=== PATIENT | female | born 1990 | race Caucasian/White ===

== ENCOUNTER → 2017-03-13 | Outpatient (CLI) | payer MEDICARE, MEDICAID ==
[~2017-03-13] MED LIST: /CELE20CA; /CELE20CA OR; /CELE20CA PO; /DULO30CA OR; /DULO30CA PO; ACET500C; ALBU83IN IN; ALLE25CA; AMBI10TA PO; AMIT25TA2 OR; AUGM875T27 PO; B1 PO; B12-1CHW PO; CALC500T19 PO; CHAN0.5P6 PO; CYMB1CAP5 PO; FLEX10TA2 PO; FLOV110A IN; GABA-279 PO; GLUC500T; GLUC500T OR; LEVO75TA3 PO; LIDO1OIN2 TOP; LYRI200C; LYRI200C PO; METF500T4 OR; METH-107 PO; MISO200T3 PO; MORP15TA2 PO; MORPHINE OR; MS C15TA5; MULTCAP PO; NAPRELAN PO; NEUR100C; NEUR300C; NEUR400C OR; PENN1SOL2 TD; PERC5TAB6 PO; PERC5TAB8; PERC5TAB8 OR; PERC5TAB8 PO; PERCOCET PO; PRIL40CA PO; PROT20TA11 PO; SENN15TA2 OR; SOMA350T; SUCR1TA PO; TIZA4CAP3 PO; TIZA4TAB OR; TRAM50TA2; TRAM50TA2 OR; TRAM50TA2 PO; TRAZ50TA OR; TYLE167L PO; VARE05TA OR; VICO5TAB; VITA500T53 PO; WELL100T PO; calcium PO; colace OR; flexeril PO; vitaminB12 PO
[2017-03-13 14:38] LABS: ALBUMIN 3.5 GM/DL (3.2-5.2); ALBUMIN/GLOBULIN RATIO 1.03 (1.00-1.93); ALKALINE PHOSPHATASE 95 U/L (45-117); ALT/SGPT 12 U/L (12-78); ANION GAP 10 MEQ/L (8-16); AST/SGOT 6 U/L (15-37); BILIRUBIN,TOTAL 0.3 MG/DL (0.2-1.0); BLOOD UREA NITROGEN 8 MG/DL (7-18); CALCIUM LEVEL 8.7 MG/DL (8.5-10.1); CARBON DIOXIDE LEVEL 27 MEQ/L (21-32); CHLORIDE LEVEL 106 MEQ/L (98-107); CREATININE FOR GFR 0.63 MG/DL (0.55-1.02); GLOMERULAR FILTRATION RATE > 60.0 (>60); GLUCOSE, FASTING 73 MG/DL (70-105); POTASSIUM SERUM 4.8 MEQ/L (3.5-5.1); SODIUM LEVEL 143 MEQ/L (136-145); TOTAL PROTEIN 6.9 GM/DL (6.4-8.2)
[2017-03-13 14:46] LABS: BASO % 0.5 % (0.0-1.0); EOS # 0.2 K/mm3 (0.0-0.50); MEAN CORPUSCULAR HEMOGLOBIN 33.2 pg (27.0-33.0); MEAN CORPUSCULAR HGB CONC 33.6 g/dl (32.0-36.5); MEAN CORPUSCULAR VOLUME 98.7 fl (80.0-96.0); MONO # 0.3 K/mm3 (0.0-0.8); MONO % 3.9 % (0.0-5.0); NEUTROPHILS # 5.9 K/mm3 (1.8-7.7); NEUTROPHILS % 68.2 % (36.0-66.0); RED CELL DISTRIBUTION WIDTH 13.1 % (11.5-14.5); WHITE BLOOD COUNT 8.6 K/mm3 (4.0-10.0)
[2017-03-14 12:56] LABS: ALBUMIN % 55.3 % (55.8-66.1)
[2017-03-14 12:57] LABS: ALBUMIN 3.82 GM/DL (3.29-5.55); GAMMA GLOBULIN % 10.8 % (11.1-18.8)
== END ==
LOC: M LAB 12:50
PROVIDERS: ATTEND Physician Assistant Medical
DX: M79.7 Fibromyalgia (principal); M54.5 Low back pain

== ENCOUNTER 2017-03-14 13:47 | Emergency (ER) | payer MEDICARE, MEDICAID ==
[~2017-03-14] VITALS: Ht 170.2 cm; Wt 90.7 kg
[~2017-03-14 13:47] MED LIST changes: -LYRI200C; -LYRI200C PO
[2017-03-14] MEDS ORDERED: LYRI200C (13:56)
[2017-03-14] MEDS ORDERED: MORPHINE 4 MG/ML 1ML SYRINGE IM ONE ×2 (14:15→14:30)
[2017-03-14] MEDS ORDERED: LYRI200C PO (14:19)
[2017-03-14 15:07] VITALS: BP 131/72
== END 2017-03-14 15:10 | disposition home or self-care (01) ==
LOC: M ED 14:30
DX: Z76.0 Encounter for issue of repeat prescription (principal); G89.29 Other chronic pain; M54.5 Low back pain; Z98.84 Bariatric surgery status; Z79.899 Other long term (current) drug therapy; Z88.2 Allergy status to sulfonamides; Z88.5 Allergy status to narcotic agent; Z88.8 Allergy status to other drugs, medicaments and biological substances; F17.210 Nicotine dependence, cigarettes, uncomplicated

== ENCOUNTER → 2017-04-04 | Outpatient (REF) | payer MEDICARE, MEDICAID ==
[~2017-04-04] MED LIST changes: +LYRI200C; +LYRI200C PO
== END ==
LOC: M LAB REF 16:38
PROVIDERS: ATTEND Physician Assistant Medical
DX: N39.0 Urinary tract infection, site not specified (principal)

== ENCOUNTER → 2017-05-10 | Outpatient (CLI) | payer MEDICARE, MEDICAID ==
[~2017-05-10] MED LIST changes: -METH-107 PO; +METH1TAB40 PO; -MISO200T3 PO; +MISO200T56 PO; +PERC5TAB12 PO; -PERC5TAB6 PO
--- NOTE | 2017-05-14 09:47 | REP ---
MR LUMBAR SPINE WITHOUT CONTRAST: HISTORY: Back pain. COMPARISON: 07/27/2015 Decreased signal intensity on T2-weighted images is present in the L3-4 through L5-S1 intervertebral discs. The discs are decreased in height. These findings are consistent with disc degeneration. A small right paracentral disc protrusion is present at the T11-12 level. There is minimal effacement of the thecal sac without spinal cord compression. The T11 neural foramina are patent on sagittal images. There is no disc bulge or herniation at the L1-2 and L2-3 levels. The nerves exit the neural foramina without compression. A diffuse disc bulge is present at the L3-4 level. There is minimal compression of the thecal sac. There is hypertrophy of the posterior articulating facets. The L3 nerves exit the neural foramina without compression. A diffuse disc bulge is present at the L4-5 level. There is hypertrophy of the ligamenta flava and posterior articulating facets. These findings produce minimal central canal stenosis. The L4 nerves exit the neural foramina without compression. A diffuse disc bulge and small central disc extrusion are present at the L5-S1 level. There is inferior migration of disc material. There is minimal compression of the thecal sac and S1 nerves as they exit the thecal sac. There is hypertrophy of the posterior articulating facets. The L5 nerves exit the neural foramina without compression. The conus medullaris is normal in appearance terminating at the level of the L1 vertebral body. Increased signal intensity on T2-weighted images is present in the endplates of the L4 and L5 vertebral bodies. This represents degenerative change. IMPRESSION: 1. Diffuse disc bulge at the L3-4 level with minimal thecal sac compression. 2. Minimal central canal stenosis at the L4-5 level secondary to disc bulge, ligamentous and facet hypertrophy. 3. Diffuse disc bulge and small central disc extrusion at the L5-S1 level with minimal compression of the thecal sac and S1 nerves as they exit the thecal sac. There is no significant change compared to the previous study. Signed by Jaspreet Yen MD 05/14/2017 09:51 A
== END ==
LOC: M RAD 09:46
PROVIDERS: ATTEND Physician Assistant
DX: M47.26 Other spondylosis with radiculopathy, lumbar region (principal); M51.36 Other intervertebral disc degeneration, lumbar region

== ENCOUNTER → 2017-05-14 | Outpatient (CLI) | payer MEDICARE, MEDICAID ==
[2017-05-14 17:41] LABS: IMMUNOGLOBULIN E 32.8 IU/ML (<100); IMMUNOGLOBULIN M 52.6 MG/DL (40-230)
== END ==
LOC: M LAB 15:47
PROVIDERS: ATTEND Physician Assistant Medical
DX: R76.9 Abnormal immunological finding in serum, unspecified (principal)

== ENCOUNTER 2018-01-15 20:42 | Emergency (ER) | payer MEDICARE, MEDICAID ==
[2018-01-15] MEDS: CLINDAMYCIN 150 MG CAP PO (22:30)
== END 2018-01-15 22:38 | disposition home or self-care (01) ==
LOC: M ED 20:42
DX: L02.411 Cutaneous abscess of right axilla (principal); F17.200 Nicotine dependence, unspecified, uncomplicated; Z79.899 Other long term (current) drug therapy; Z88.5 Allergy status to narcotic agent; Z88.6 Allergy status to analgesic agent; Z88.2 Allergy status to sulfonamides
CPT/HCPCS: 87186

== ENCOUNTER → 2018-03-06 | Outpatient (CLI) | payer MEDICARE, MEDICAID ==
[2018-03-06 08:17] LABS: HEMATOCRIT 40.8 % (36.0-47.0); HEMOGLOBIN 13.2 g/dl (12.0-15.5); MEAN CORPUSCULAR HEMOGLOBIN 28.9 pg (27.0-33.0); MEAN CORPUSCULAR HGB CONC 32.4 g/dl (32.0-36.5); MEAN CORPUSCULAR VOLUME 89.5 fl (80.0-96.0); PLATELET COUNT, AUTOMATED 417 10^3/uL (150-450); RED BLOOD COUNT 4.56 10^6/uL (4.00-5.40); RED CELL DISTRIBUTION WIDTH 15.6 % (11.5-14.5); WHITE BLOOD COUNT 9.7 10^3/uL (4.0-10.0)
[2018-03-06 08:56] LABS: ALBUMIN 3.4 GM/DL (3.2-5.2); ALKALINE PHOSPHATASE 74 U/L (45-117); ALT/SGPT 11 U/L (12-78); ANION GAP 5 MEQ/L (8-16); AST/SGOT 10 U/L (7-37); BILIRUBIN,TOTAL 0.3 MG/DL (0.2-1.0); BLOOD UREA NITROGEN 8 MG/DL (7-18); CALCIUM LEVEL 8.6 MG/DL (8.5-10.1); CARBON DIOXIDE LEVEL 27 MEQ/L (21-32); CHLORIDE LEVEL 112 MEQ/L (98-107); CHOLESTEROL LEVEL 143 MG/DL (<200); CHOLESTEROL RISK RATIO 3.487 (<5); CREATININE FOR GFR 0.84 MG/DL (0.55-1.30); GLOMERULAR FILTRATION RATE > 60.0 (>60); GLUCOSE, FASTING 82 MG/DL (70-100); HDL CHOLESTEROL 41 MG/DL (>40); IRON (FE) 26 UG/DL (50-170); LDL CHOLESTEROL 73.8 MG/DL (<100); NON-HDL-C 102 MG/DL; PERCENT SATURATION 6.1 % (13.2-45.0); POTASSIUM SERUM 4.2 MEQ/L (3.5-5.1); SODIUM LEVEL 144 MEQ/L (136-145); THYROID STIMULATING HORMONE 0.629 uIU/ML (0.358-3.740); TOTAL IRON BINDING CAPACITY 423 UG/DL (250-450); TOTAL PROTEIN 6.8 GM/DL (6.4-8.2); TRIGLYCERIDES LEVEL 141 MG/DL (<150)
[2018-03-06 09:55] LABS: ESTIMATED AVERAGE GLUCOSE 105 MG/DL (60-110); HEMOGLOBIN A1c 5.3 %
[2018-03-06 12:11] LABS: TOTAL 25(OH) VITAMIN D 14.8 NG/ML (30.0-100.0); VITAMIN B12 LEVEL 294 PG/ML (247-911)
== END ==
LOC: M LAB 06:23
DX: D64.9 Anemia, unspecified (principal); R53.83 Other fatigue; E03.9 Hypothyroidism, unspecified
CPT/HCPCS: 83550

== ENCOUNTER → 2019-06-29 | Outpatient (CLI) | payer MEDICARE, MEDICAID ==
[~2019-06-29] MED LIST changes: -/CELE20CA; -/CELE20CA OR; -/CELE20CA PO; -/DULO30CA OR; -/DULO30CA PO; +AMIT50TA PO; +CELE1CAP4; +CELE1CAP4 OR; +CELE1CAP4 PO; +CLEO300C2 PO; +CONRAY-43 43% 50ML VIAL (Q9960) As Ordered ONE; +CYCL10TA PO; +CYMB1CAP5 OR; +CYMB60CA3 PO; +GABA-1171 PO; -GABA-279 PO; +LIDOCAINE 1% MDV 20ML VIAL As Ordered ONE; -LYRI200C; +NORC1TAB8 PO; +OXYC1TAB23 PO; -PERCOCET PO; +TIZA4CAP PO; -TIZA4CAP3 PO; +TRIAMCINOLONE ACETONIDE SUSP 40 MG/ML VIAL (J3301) As Ordered ONE; +VITA500T17 PO; -VITA500T53 PO
--- NOTE | 2019-06-30 09:26 | REP ---
Reason For Exam/Comment: Pain in right hip Procedure: Right hip arthrocentesis The procedure was performed by PRAFUL Stevenson, under the direct supervision of Dr. Whittington. The benefits and risks including but not limited to pain, infection, bleeding and anaphylaxis were explained to the patient and informed consent was obtained both verbally and written. Directly prior to the start of the procedure, a formal timeout was completed in the procedure room. The right femoral neck was localized using fluoroscopic guidance. The skin was prepped and draped in the usual sterile fashion. 5 mL of 1% lidocaine was used as a local anesthetic. Using fluoroscopic guidance a 22-gauge spinal needle was inserted and advanced to the right femoral neck joint space . 1 mL of Conray 43 was injected to verify needle placement. A 6 mL solution containing a 5 mL 1% lidocaine 10 mg/ml and 1 ml of Kenalog 40 mg/ml was injected into the joint. The needle was removed and hemostasis was achieved. The patient tolerated the procedure well and there were no immediate complications. 0.1 minutes of fluoroscopy time was utilized for this procedure. Some fluoroscopic images are performed with last image hold technology. These images require no additional radiation. Reviewed by PRAFUL Estes 06/29/2019 03:29 P Electronically Signed by Elna Whittington MD 06/30/2019 09:17 A
== END ==
LOC: M RADPRO 09:35
PROVIDERS: ATTEND Physician Assistant
DX: M25.551 Pain in right hip (principal)
CPT/HCPCS: 20610; 77002; J3301; Q9960

== ENCOUNTER 2019-12-03 15:22 | Emergency (ER) | payer MEDICARE, MEDICAID ==
[~2019-12-03] VITALS: Ht 167.6 cm; Wt 95.5 kg
[~2019-12-03 15:22] MED LIST changes: -CONRAY-43 43% 50ML VIAL (Q9960) As Ordered ONE; -LIDOCAINE 1% MDV 20ML VIAL As Ordered ONE; -TRIAMCINOLONE ACETONIDE SUSP 40 MG/ML VIAL (J3301) As Ordered ONE
[2019-12-03] MEDS ORDERED: FLUO20CA19 PO (16:29)
[2019-12-03] MEDS ORDERED: ADACEL/BOOSTRIX VACCINE (DIPHTH/PERTUSS/ACELL/TETANUS)0.5ML SYR (90715) IM ONE (16:45)
[2019-12-03] MEDS ORDERED: LIDOCAINE 2% MDV 20 ML VIAL SC ONE (16:45)
[2019-12-03] MEDS ORDERED: INFANRIX VACCINE SYRINGE (DIPHTH/TET/ACEL PERTUS PEDIATRIC) (CPT 90700) IM ONE (16:45)
[2019-12-03] MEDS ORDERED: NORC1TAB8 PO (17:23)
[2019-12-03 17:29] VITALS: BP 150/73
--- NOTE | 2019-12-03 18:18 | REP ---
LEFT FINGERS: 12/03/2019. Clinical history: Crush injury. Findings: Four views are provided. There is a soft tissue injury along the ulnar aspect of the DIP joint of the fourth digit. I do not see radiopaque foreign body. The MCP and IP joints and phalanges without fracture or avulsion. No radiopaque foreign body. Impression: 1. Soft tissue injury at the ulnar aspect DIP joint of the fourth digit without evidence of fracture or foreign body. Electronically Signed by Laurent Oneil MD 12/03/2019 08:51 P
== END 2019-12-03 17:30 | disposition home or self-care (01) ==
LOC: M ED 15:22
DX: S61.215A Laceration without foreign body of left ring finger without damage to nail, initial encounter (principal); S60.042A Contusion of left ring finger without damage to nail, initial encounter; W20.8XXA Other cause of strike by thrown, projected or falling object, initial encounter; Y92.099 Unspecified place in other non-institutional residence as the place of occurrence of the external cause; Y93.9 Activity, unspecified; Y99.9 Unspecified external cause status; Z98.84 Bariatric surgery status; F17.200 Nicotine dependence, unspecified, uncomplicated; Z79.899 Other long term (current) drug therapy; Z88.2 Allergy status to sulfonamides; Z88.5 Allergy status to narcotic agent; Z88.6 Allergy status to analgesic agent

== ENCOUNTER → 2020-04-07 | Outpatient (CLI) | payer MEDICARE, MEDICAID ==
[~2020-04-07] MED LIST changes: +CYCL-707 PO; -CYCL10TA PO; +FLUO20CA22 PO
--- NOTE | 2020-04-11 03:51 | ECWPNPC ---
PATIENT NAME: MARIA E FARMER : 1990 GENDER: FEMALE VISIT DATE: 04/07/2020 DISCHARGE DATE: 04/07/20 1011 VISIT LOCKED DATE TIME: PHYSICIAN: JAIRON MACDONALD RESOURCE: JAIRON MACDONALD REASON FOR APPOINTMENT 1. CHRONIC AND UNREMITTING BACK PAIN UNABLE TO REACH PT HISTORY OF PRESENT ILLNESS DEPRESSION SCREENING: PHQ-9 LITTLE INTEREST OR PLEASURE IN DOING THINGSNEARLY EVERY DAY FEELING DOWN, DEPRESSED, OR HOPELESSNEARLY EVERY DAY TROUBLE FALLING OR STAYING ASLEEP, OR SLEEPING TOO MUCHNEARLY EVERY DAY FEELING TIRED OR HAVING LITTLE ENERGYNEARLY EVERY DAY POOR APPETITE OR OVEREATING SEVERAL DAYS FEELING BAD ABOUT YOURSELF-OR THAT YOU ARE A FAILURE OR HAVE LET YOURSELF OR YOUR FAMILY DOWN NEARLY EVERY DAY TROUBLE CONCENTRATING ON THINGS, SUCH READING THE NEWSPAPER OR WATCHING TELEVISION SEVERAL DAYS MOVING OR SPEAKING SO SLOWLY THAT OTHER PEOPLE COULD HAVE NOTICED. OR THE OPPOSITE- BEING SO FIDGETY OR RESTLESS THAT YOU HAVE BEEN MOVING AROUND A LOT MORE THAN USUALNOT AT ALL THOUGHTS THAT YOU WOULD BE BETTER OFF , OR OF HURTING YOURSELF IN SOME WAY?NOT AT ALL TOTAL SCORE:17 INTERPRETATIONMODERATELY SEVERE DEPRESSION PHQ-2 (2015 EDITION) LITTLE INTEREST OR PLEASURE IN DOING THINGS?NEARLY EVERY DAY FEELING DOWN, DEPRESSED, OR HOPELESS?NEARLY EVERY DAY TOTAL SCORE6 29-YEAR-OLD FEMALE IN FOR INITIAL PAIN CONSULT. PATIENT STATES THAT HER LOW BACK PAIN HAS BEEN PRESENT SINCE THE AGE OF 14. SHE DENIES ANY KNOWN TRAUMA. SHE RATES HER PAIN CURRENTLY AT A 7 OUT OF 10 AND DESCRIBES IT THROBBING, SORE, CONSTANT, AND STABBING. SHE DOES ADMIT TO HAVING INJECTIONS IN THE PAST AND STATES THAT THEY WERE INEFFECTIVE. GENERAL: - - -. FALL RISK SCREENING: SCREENING :NO FALLS REPORTED IN THE LAST YEAR PAIN SCREENING: PATIENT HAS A COMPLAINT OF ACUTE OR CHRONIC PAIN :YES LOCATION OF PAIN:LOW BACK, LEG(S) INTENSITY OF PAIN (SCALE OF 1 TO 10):7 WHAT DOES YOUR PAIN FEEL LIKE:ACHING, BURNING, CONTINOUS, SHARP, TENDER, THROBBING, SORE, SHOOTING DURATION:CONSTANT, AWAKENS FROM SLEEP PAIN IS INCREASED BY:ACTIVITIES, PROLONGED STANDING PAIN IS DECREASED BY:OTHERS STRETCHING TREATMENT/MEDICATIONS USED TO MANAGE PAIN:OPIOIDS VICODIN PAIN HAS INTERFERED WITH THE FOLLOWING:BATHING/DRESSING, MOOD, WALKING ABILITY, EMPLOYMENT, HOUSEWORK, SLEEP, RELATIONSHIP WITH OTHERS, ENJOYMENT OF LIFE, TRANSPORTATION, TOILETING PLAN/GOALS/TREATMENT/INTERVENTION/FOLLOW UP:SEE PLAN NURSING NOTE: - - -. PAIN CENTER INTAKE QUESTIONS: NOTES: DISCUSSED DEPRESSION SCORE WITH PT TO ENSURE SAFETY, PT STATES THAT SHE IS NOT A DANGER TO HERSELF OR ANYONE ELSE. UPDATED PROVIDER.. DO YOU HAVE A HISTORY OF MRSA? :NO DO YOU TAKE A BLOOD THINNERS? :NO DO YOU HAVE ANY BLEEDING DISORDERS? :NO ANY NEW NUMBNESS OR WEAKNESS IN YOUR LEGS OR ARMS? :NO ANY PACEMAKER,DEFIBRILLATOR, OR DORSAL COLUMN STIMULATOR? :NO DO YOU HAVE ANY RASHES OR OPEN SORES? :NO ARE YOU ALLERGIC TO IV DYE? :NO ARE YOU DIABETIC? :NO ANY NEW PROBLEMS WITH YOUR MEDICATIONS? :NO HAVE YOU RECEIVED A VACCINE IN THE PAST 30 DAYS? :NO DO YOU PLAN TO RECEIVE A VACCINE IN THE NEXT 21 DAYS? :NO DO YOU NEED ANY PRESCRIPTION? :YES PT STATES THAT SHE WAS GETTING AMITRITYLINE THROUGH PCP. WILL NOT PRESCRIBE ANY LONGER DO YOU TAKE ANY IMMUNOSUPPRESSIVE MEDICATIONS? :NO CURRENT MEDICATIONS TAKING ALBUTEROL SULFATE HFA 108 (90 BASE) MCG/ACT AEROSOL SOLUTION 2 PUFFS INHALATION EVERY 4-6 HOURS NEEDED TAKING MULTIVITAMINS CAPSULE 1CAP ORALLY DAILY TAKING VITAMIN B12 500 MCG TABLET 1 TABLET ORALLY ONCE A DAY TAKING CALCIUM 500 MG TABLET 1 TABLET WITH MEALS ORALLY TWICE A DAY TAKING CARAFATE 1 GM TABLET 1 TABLET ON AN EMPTY STOMACH ORALLY TWICE A DAY TAKING LYRICA 100 MG CAPSULE 1 CAPSULE ORALLY BID NOT-TAKING PERCOCET 5-325 MG TABLET 1 TABLET NEEDED ORALLY EVERY 6 HRS NOT-TAKING PRILOSEC ? MG CAPSULE DELAYED RELEASE 1 CAPSULE ORALLY BID NOT-TAKING PHENAZO 200 MG TABLET 1 TABLET AFTER MEALS ORALLY THREE TIMES A DAY NOT-TAKING LEVOTHYROXINE SODIUM 75 MCG TABLET 1 TABLET ON AN EMPTY STOMACH IN THE MORNING ORALLY ONCE A DAY NOT-TAKING TAMSULOSIN HCL 0.4 MG CAPSULE 1 CAPSULE 30 MINUTES AFTER THE SAME MEAL EACH DAY ORALLY ONCE A DAY NOT-TAKING BACTRIM DS 800-160 MG TABLET 1 TABLET ORALLY TWICE A DAY MEDICATION LIST REVIEWED AND RECONCILED WITH THE PATIENT PAST MEDICAL HISTORY CHRONIC LOW BACK PAIN-LUMBAR INTERVERTBRAL DISC PROTRUSION/EXTRUSION.LEFT SIDED RADICULOPATHY- PAIN CLINIC SPONDYLOLISTHESIS L5-S1 PCOS OBESITY KIDNEY STONES ALLERGIES SULFA: RASH - ALLERGY CAT: ITCHY EYES,SNEEZING - ALLERGY KEFLEX: RASH - ALLERGY CODEINE SULFATE: RASH - ALLERGY SURGICAL HISTORY GASTRIC BYPASS 11/2013 FAMILY HISTORY FATHER: ALIVE, HTN, HEART ATTACK, DM TYPE2 MOTHER: ALIVE, DM TYPE 2 SIBLINGS: ALIVE MATERNAL GRAND MOTHER: HEART ATTACK MATERNAL AUNT: MESOTHELIOMA 3 BROTHER(S) - HEALTHY. FAMILY HX OF KIDNEY STONES AND FREQUENT UTI'S. SOCIAL HISTORY GENERAL: TOBACCO USE ARE YOU A:CURRENT SMOKER ARE YOU INTERESTED IN QUITTING?READY TO QUIT HOW MANY CIGARETTES A DAY DO YOU SMOKE?6-10 HOW SOON AFTER YOU WAKE UP DO YOU SMOKE YOUR FIRST CIGARETTE?6-30 MIN HOW OFTEN DO YOU SMOKE CIGARETTES?EVERY DAY PATIENT COUNSELED ON THE DANGERS OF TOBACCO USE AND URGED TO QUIT:04/07/2020 LATEX QUESTIONNAIRE LATEX ALLERGY : HAVE YOU EVER DEVELOPED ANY TYPE OF REACTION AFTER HANDLING LATEX PRODUCTS SUCH RUBBER GLOVES, CONDOMS, DIAPHRAGMS, BALLOONS, SOCKS, OR UNDERWEAR?NO LATEX ALLERGY : HAVE YOU EVER DEVELOPED ANY TYPE OF REACTION DURING OR AFTER DENTAL APPOINTMENT, VAGINAL/RECTAL EXAMINATION, SURGICAL PROCEDURE, OR ANY OTHER EXPOSURE?NO LATEX RISK : HAVE YOU EVER HAD ANY DIFFICULTY BREATHING OR HIVES AFTER EATING OR HANDLING ANY FRUITS, OR VEGETABLES; SUCH KIWI, BANANAS, STONE FRUITS, OR CHESTNUTSNO LATEX RISK : DO YOU HAVE A PREVIOUS PERSONAL HISTORY OF MORE THAN NINE SURGERIES, SPINA BIFIDA, OR REPEATED CATHERIZATIONS? NO LATEX RISK : ARE YOU FREQUENTLY EXPOSED TO LATEX PRODUCTS IN YOUR OCCUPATION?NO DATE ASKED : 04/07/2020 ALCOHOL SCREENING DID YOU HAVE A DRINK CONTAINING ALCOHOL IN THE PAST YEAR?NO POINTS0 INTERPRETATIONNEGATIVE RECREATIONAL DRUG USE DENIES. CAFFEINE NONE. SEXUAL HX HAD SEX IN THE LAST 12 MONTHS (VAGINAL, ORAL, OR ANAL)?YES WITHMEN ONLY PREVENTION STRATEGIES DISCUSSED:CONDOMS USE PROTECTION?YES HOW OFTEN?ALL OF THE TIME HAVE YOU EVER HAD AN STD?NO NONDENOMINATIONAL NO PENTECOSTAL BELIEFS THAT WOULD IMPACT HEALTH CARE. LANGUAGE [place]. DOMESTIC VIOLENCE NONE. OCCUPATION: [employer] FOR BACK PAIN. DIET: REGULAR DIET. EXERCISE: WALKS. MARITAL STATUS: SINGLE. OTHERS AT HOME: BF AND MOM. PAIN CLINIC PFS, CLERGY, PUBLIC HEALTH REFERRALS WAS THE PROVIDER NOTIFIED OF ANY PERTINENT INFO?YES HAS THE PATIENT BEEN EDUCATED REGARDING HIS/HER PLAN OF CARE?YES ORIENTED TO PAIN MANAGEMENT HAS THE PATIENT BEEN EDUCATED REGARDING PAIN, THE RISK FOR PAIN, THE IMPORTANCE OF EFFECTIVE PAIN MANAGEMENT, AND THE PAIN ASSESSMENT PROCESS?YES HOUSING: RENTS APARTMENT. ADVANCE DIRECTIVE ADVANCE DIRECTIVE DISCUSSED WITH PATIENT:YES PT STATES THAT SHE DOES NOT HAVE A HCP, DECLINES ASSISTANCE OR INFORMATION AT THIS TIME HOSPITALIZATION/MAJOR DIAGNOSTIC PROCEDURE NO HOSPITALIZATION HISTORY. REVIEW OF SYSTEMS CONSTITUTIONAL: ANY RECENT FEVER OR ILLNESS NO . ANY CHANGE IN YOUR MEDICAL CONDITION? NO . CHILLS NO . MUSCULOSKELETAL: ANY NEW PATTERNS OF PAIN OR NUMBNESS? NO . SYSTEMIC LUPUS NO . LYME DISEASE NO . GASTROENTEROLOGY: ANY NEW CHANGE IN BOWEL CONTROL? NO . BARRETTS ESOPHAGUS NO . CIRRHOSIS NO . HEPATITIS NO . LIVER FAILURE NO . NO ABDOMINAL PAIN. ACID REFLUX NO . NO ANOREXIA. NO CONSTIPATION. NO CRAMPING. NO NAUSEA. NO RECTAL BLEEDING. NO VOMITING. UNEXPLAINED WEIGHT LOSS NO . GENITOURINARY: ANY NEW CHANGE IN BLADDER CONTROL? NO . IS THERE A CHANCE YOU COULD BE ? NO . NEUROLOGY: HEAD INJURY NO . NEW ONSET DIZZINESS NO . HEADACHE A LITTLE . STROKES NO . VERTIGO NO . CARDIOLOGY: ANGINA NO . HEART ATTACK NO . HEART SURGERY NO . CONGESTIVE HEART FAILURE/FLUID OVERLOAD NO . CHEST PAIN NO . HIGH BLOOD PRESSURE NO . IRREGULAR HEART BEAT NO . RESPIRATORY: SLEEP APNEA NO . ASTHMA NO . SHORTNESS OF BREATH ON EXERTION NO . COUGH NO . WHEEZING NO . ENDOCRINOLOGY: ADRENAL GLAND DISORDER NO . THYROID DISORDER NO . VITAL SIGNS WT 221.2 LBS, HT 67 IN, BMI 34.64 INDEX, BP 127/83 MM HG, HR 90 /MIN, RR 18 /MIN, TEMP 98.3 F, OXYGEN SAT % 98%, NA INITIALS TL 0920. EXAMINATION GENERAL EXAMINATION: GENERALNO ACUTE DISTRESS, WELL NOURISHED AND HYDRATED. PSYCHAPPROPRIATE MOOD AND AFFECT . LUNGS:CLEAR TO AUSCULTATION BILATERALLY, NO WHEEZES, RHONCHI, RALES. HEART:NO MURMURS, REGULAR RATE AND RHYTHM. BACK:POINT TENDER ALONG LUMBAR SPINE, SURROUNDING SKIN SHOWS NO ERYTHEMA, ECCHYMOSIS, INCREASED WARMTH, AND/OR SKIN ERUPTIONS NOTED. POSITIVE MODIFIED SLR ON THE RIGHT SIDE. . MUSCULOSKELETAL:EQUAL STRENGTH OF THE LOWER EXTREMITIES BILATERALLY . ASSESSMENTS RADICULOPATHY, LUMBOSACRAL REGION - M54.17 (PRIMARY) TREATMENT RADICULOPATHY, LUMBOSACRAL REGION START CYMBALTA CAPSULE DELAYED RELEASE PARTICLES, 30 MG, 1 CAPSULE, ORALLY, ONCE A DAY, 30 DAY(S), 30 CLINICAL NOTES: 29-YEAR-OLD FEMALE IN FOR INITIAL PAIN CONSULT. GIVEN PRESENTING SYMPTOMS AND RESULTS OF PHYSICAL EXAMINATION RECOMMENDED CYMBALTA 30 MG DAILY WITH FOLLOW-UP IN ONE MONTH TO DETERMINE EFFICACY OF TREATMENT. DISCUSSED PROCEDURES WITH PATIENT AND SHE DECLINES THEM AT THIS TIME. PATIENT HAS EXPRESSED UNDERSTANDING OF AND WAS IN AGREEMENT WITH TREATMENT PLAN. GIVEN TIME TO ASK QUESTIONS AND EXPRESS CONCERNS. REFERRAL TO:[facility] TRACKER [facility] REASON:PHQ9 SCORE OF 17 OTHERS NOTES: DULOXETINE MATERIAL WAS PRINTED. PROCEDURE CODES FA211 ESTABILISHED PATIENT [facility] CHARGE DISPOSITION & COMMUNICATION FOLLOW UP 4 WEEKS (REASON: BACK PAIN, NEW MEDICATION) ELECTRONICALLY SIGNED BY ISAMAR MARRUFO ON 04/10/2020 AT 08:26 AM EDT DISCLAIMER : THIS IS A VISIT SUMMARY EXTRACTED FROM THE [employer] CHART. IT IS NOT A COPY OF THE [employer] PROGRESS NOTE. ROCKY
== END ==
LOC: M PAIN 09:15
PROVIDERS: ATTEND Family Medicine
DX: M54.17 Radiculopathy, lumbosacral region (principal)

== ENCOUNTER → 2020-05-05 | Outpatient (CLI) | payer MEDICARE, MEDICAID ==
--- NOTE | 2020-05-09 04:22 | ECWPNPC ---
PATIENT NAME: MARIA E FARMER : 1990 GENDER: FEMALE VISIT DATE: 05/05/2020 DISCHARGE DATE: 05/05/20 1127 VISIT LOCKED DATE TIME: PHYSICIAN: JAIRON MACDONALD RESOURCE: JAIRON MACDONALD REASON FOR APPOINTMENT 1. BACK PAIN, NEW MEDICATION PAT DONE HISTORY OF PRESENT ILLNESS GENERAL: - 30-YEAR-OLD FEMALE IN FOR CHRONIC PAIN FOLLOW-UP. AT LAST CLINIC VISIT PATIENT WAS STARTED ON CYMBALTA AND ADMITS TODAY THAT SHE IS UNSURE IF THIS HAS BEEN HELPFUL. SHE RATES HER PAIN CURRENTLY AT AN 8 OUT OF 10 AND DESCRIBES IT ACHING, SHARP, AND CONSTANT. FALL RISK SCREENING: SCREENING :NO FALLS REPORTED IN THE LAST YEAR PAIN SCREENING: PATIENT HAS A COMPLAINT OF ACUTE OR CHRONIC PAIN :YES LOCATION OF PAIN:LOW BACK INTENSITY OF PAIN (SCALE OF 1 TO 10):8 WHAT DOES YOUR PAIN FEEL LIKE:ACHING, THROBBING, SHOOTING DURATION:CONTINOUS, CONSTANT, ALL DAY PAIN IS INCREASED BY:ACTIVITIES, PROLONGED STANDING WALKING PAIN IS DECREASED BY: NOTHING PAIN HAS INTERFERED WITH THE FOLLOWING:MOOD, HOUSEWORK, RELATIONSHIP WITH OTHERS, ENJOYMENT OF LIFE PLAN/GOALS/TREATMENT/INTERVENTION/FOLLOW UP:SEE PLAN NURSING NOTE: CYMBALTA IS NOT WORKING PER PATIENT-. PAIN CENTER INTAKE QUESTIONS: DO YOU HAVE A HISTORY OF MRSA? :NO DO YOU TAKE A BLOOD THINNERS? :NO DO YOU HAVE ANY BLEEDING DISORDERS? :NO ANY NEW NUMBNESS OR WEAKNESS IN YOUR LEGS OR ARMS? :NO ANY PACEMAKER,DEFIBRILLATOR, OR DORSAL COLUMN STIMULATOR? :NO DO YOU HAVE ANY RASHES OR OPEN SORES? :NO ARE YOU ALLERGIC TO IV DYE? :NO ARE YOU DIABETIC? :NO ANY NEW PROBLEMS WITH YOUR MEDICATIONS? :NO HAVE YOU RECEIVED A VACCINE IN THE PAST 30 DAYS? :NO DO YOU PLAN TO RECEIVE A VACCINE IN THE NEXT 21 DAYS? :NO DO YOU NEED ANY PRESCRIPTION? :YES CYMBALTA DO YOU TAKE ANY IMMUNOSUPPRESSIVE MEDICATIONS? :NO IS THERE A CHANCE YOU COULD BE ? :NO ARE YOU BREAST FEEDING? :NO CURRENT MEDICATIONS TAKING ALBUTEROL SULFATE HFA 108 (90 BASE) MCG/ACT AEROSOL SOLUTION 2 PUFFS INHALATION EVERY 4-6 HOURS NEEDED TAKING MULTIVITAMINS CAPSULE 1CAP ORALLY DAILY TAKING VITAMIN B12 500 MCG TABLET 1 TABLET ORALLY ONCE A DAY TAKING CALCIUM 500 MG TABLET 1 TABLET WITH MEALS ORALLY TWICE A DAY TAKING CARAFATE 1 GM TABLET 1 TABLET ON AN EMPTY STOMACH ORALLY TWICE A DAY TAKING LYRICA 100 MG CAPSULE 1 CAPSULE ORALLY BID TAKING CYMBALTA 30 MG CAPSULE DELAYED RELEASE PARTICLES 1 CAPSULE ORALLY ONCE A DAY NOT-TAKING PERCOCET 5-325 MG TABLET 1 TABLET NEEDED ORALLY EVERY 6 HRS NOT-TAKING PRILOSEC ? MG CAPSULE DELAYED RELEASE 1 CAPSULE ORALLY BID NOT-TAKING PHENAZO 200 MG TABLET 1 TABLET AFTER MEALS ORALLY THREE TIMES A DAY NOT-TAKING LEVOTHYROXINE SODIUM 75 MCG TABLET 1 TABLET ON AN EMPTY STOMACH IN THE MORNING ORALLY ONCE A DAY NOT-TAKING TAMSULOSIN HCL 0.4 MG CAPSULE 1 CAPSULE 30 MINUTES AFTER THE SAME MEAL EACH DAY ORALLY ONCE A DAY NOT-TAKING BACTRIM DS 800-160 MG TABLET 1 TABLET ORALLY TWICE A DAY MEDICATION LIST REVIEWED AND RECONCILED WITH THE PATIENT PAST MEDICAL HISTORY CHRONIC LOW BACK PAIN-LUMBAR INTERVERTBRAL DISC PROTRUSION/EXTRUSION.LEFT SIDED RADICULOPATHY- PAIN CLINIC SPONDYLOLISTHESIS L5-S1 PCOS OBESITY KIDNEY STONES ALLERGIES SULFA: RASH - ALLERGY CAT: ITCHY EYES,SNEEZING - ALLERGY KEFLEX: RASH - ALLERGY CODEINE SULFATE: RASH - ALLERGY SURGICAL HISTORY GASTRIC BYPASS 11/2013 FAMILY HISTORY FATHER: ALIVE, HTN, HEART ATTACK, DM TYPE2 MOTHER: ALIVE, DM TYPE 2 SIBLINGS: ALIVE MATERNAL GRAND MOTHER: HEART ATTACK MATERNAL AUNT: MESOTHELIOMA 3 BROTHER(S) - HEALTHY. FAMILY HX OF KIDNEY STONES AND FREQUENT UTI'S. SOCIAL HISTORY GENERAL: TOBACCO USE ARE YOU A:CURRENT SMOKER ARE YOU INTERESTED IN QUITTING?READY TO QUIT COUNSELED THE PATIENT ON TOBACCO USE, CESSATION [id number]/26/2020 HOW MANY CIGARETTES A DAY DO YOU SMOKE?6-10 HOW SOON AFTER YOU WAKE UP DO YOU SMOKE YOUR FIRST CIGARETTE?6-30 MIN HOW OFTEN DO YOU SMOKE CIGARETTES?EVERY DAY PATIENT COUNSELED ON THE DANGERS OF TOBACCO USE AND URGED TO QUIT:05/05/2020 SMOKING CESSATION INFORMATION GIVEN05/05/2020 LATEX QUESTIONNAIRE LATEX ALLERGY : HAVE YOU EVER DEVELOPED ANY TYPE OF REACTION AFTER HANDLING LATEX PRODUCTS SUCH RUBBER GLOVES, CONDOMS, DIAPHRAGMS, BALLOONS, SOCKS, OR UNDERWEAR?NO LATEX ALLERGY : HAVE YOU EVER DEVELOPED ANY TYPE OF REACTION DURING OR AFTER DENTAL APPOINTMENT, VAGINAL/RECTAL EXAMINATION, SURGICAL PROCEDURE, OR ANY OTHER EXPOSURE?NO LATEX RISK : HAVE YOU EVER HAD ANY DIFFICULTY BREATHING OR HIVES AFTER EATING OR HANDLING ANY FRUITS, OR VEGETABLES; SUCH KIWI, BANANAS, STONE FRUITS, OR CHESTNUTSNO LATEX RISK : DO YOU HAVE A PREVIOUS PERSONAL HISTORY OF MORE THAN NINE SURGERIES, SPINA BIFIDA, OR REPEATED CATHERIZATIONS? NO LATEX RISK : ARE YOU FREQUENTLY EXPOSED TO LATEX PRODUCTS IN YOUR OCCUPATION?NO DATE ASKED : 05/05/2020 ALCOHOL SCREENING POINTS: 0, INTERPRETATION: NEGATIVE. RECREATIONAL DRUG USE DENIES. CAFFEINE NONE. SEXUAL HX HAD SEX IN THE LAST 12 MONTHS (VAGINAL, ORAL, OR ANAL)?: YES, WITH: MEN ONLY, USE PROTECTION?: YES, HOW OFTEN?: ALL OF THE TIME, PREVENTION STRATEGIES DISCUSSED:: CONDOMS, HAVE YOU EVER HAD AN STD?: NO. MANDAEN NO CAODAISM BELIEFS THAT WOULD IMPACT HEALTH CARE. LANGUAGE DIVEHI. DOMESTIC VIOLENCE NONE. OCCUPATION: [employer] FOR BACK PAIN. DIET: REGULAR DIET. EXERCISE: WALKS. MARITAL STATUS: SINGLE. OTHERS AT HOME: BF AND MOM. PAIN CLINIC PFS, CLERGY, PUBLIC HEALTH REFERRALS WAS THE PROVIDER NOTIFIED OF ANY PERTINENT INFO?YES HAS THE PATIENT BEEN EDUCATED REGARDING HIS/HER PLAN OF CARE?YES ORIENTED TO PAIN MANAGEMENT HAS THE PATIENT BEEN EDUCATED REGARDING PAIN, THE RISK FOR PAIN, THE IMPORTANCE OF EFFECTIVE PAIN MANAGEMENT, AND THE PAIN ASSESSMENT PROCESS?YES HOUSING: RENTS APARTMENT. ADVANCE DIRECTIVE ADVANCE DIRECTIVE DISCUSSED WITH PATIENT:YES PT STATES THAT SHE DOES NOT HAVE A HCP, DECLINES ASSISTANCE OR INFORMATION AT THIS TIME HOSPITALIZATION/MAJOR DIAGNOSTIC PROCEDURE NO HOSPITALIZATION HISTORY. REVIEW OF SYSTEMS CONSTITUTIONAL: ANY RECENT FEVER NO . CHILLS NO . WEIGHT CHANGE OF UNKNOWN REASONS NO . GASTROENTEROLOGY: NEW UNEXPLAINABLE CHANGES IN BOWEL CONTROL NO . CONSTIPATION NO . GENITOURINARY: ANY NEW CHANGE IN BLADDER CONTROL? NO . NEUROLOGY: NEW ONSET DIZZINESS OR NEUROLOGICAL CHANGES NOT MENTIONED NO . NEW NUMBNESS OR PAIN PATTERNS NOT MENTIONED AND PERTINENT TO TODAY'S VISIT NO . CARDIOLOGY: NEW CHEST PRESSURE NO . NEW CHEST PAIN NO . RESPIRATORY: UNEXPLAINABLE COUGH NO . NEW SHORTNESS OF BREATH NO . EXAMINATION GENERAL EXAMINATION: GENERALNO ACUTE DISTRESS, WELL NOURISHED AND HYDRATED. PSYCHAPPROPRIATE MOOD AND AFFECT , ORIENTED X 3. ASSESSMENTS RADICULOPATHY, LUMBOSACRAL REGION - M54.17 (PRIMARY) TREATMENT RADICULOPATHY, LUMBOSACRAL REGION INCREASE CYMBALTA CAPSULE DELAYED RELEASE PARTICLES, 60 MG, 1 CAPSULE, ORALLY, ONCE A DAY, 30 DAY(S), 30 CLINICAL NOTES: 30-YEAR-OLD FEMALE IN FOR CHRONIC PAIN FOLLOW-UP GIVEN PRESENTING SYMPTOMS RECOMMEND INCREASING CYMBALTA TO 60 MG DAILY WITH FOLLOW-UP IN ONE MONTH TO DETERMINE EFFICACY OF TREATMENT. PATIENT HAS EXPRESSED UNDERSTANDING OF AND WAS IN AGREEMENT WITH TREATMENT PLAN. GIVEN TIME TO ASK QUESTIONS AND EXPRESS CONCERNS. TELEHEALTH VISIT CONDUCTED VIA ZOOM. TIME SPENT WITH PATIENT 7 MINUTES. . OTHERS NOTES: VITALS NOT OBTAINED DUE TO VIRTUAL VISIT, PRE-SCREENING COMPLETED, 05/05/20, NA DULOXETINE MATERIAL WAS PRINTED. DISPOSITION & COMMUNICATION FOLLOW UP 4 WEEKS (REASON: MED INCREASE) ELECTRONICALLY SIGNED BY ISAMAR MARRUFO ON 05/08/2020 AT 08:41 AM EDT DISCLAIMER : THIS IS A VISIT SUMMARY EXTRACTED FROM THE [employer] CHART. IT IS NOT A COPY OF THE [employer] PROGRESS NOTE. ROCKY
== END ==
LOC: M TMPAIN 11:00 → M PAIN 11:00
PROVIDERS: ATTEND Family Medicine
DX: M54.17 Radiculopathy, lumbosacral region (principal); Z79.899 Other long term (current) drug therapy; Z98.84 Bariatric surgery status; F17.210 Nicotine dependence, cigarettes, uncomplicated; Z88.2 Allergy status to sulfonamides; Z88.5 Allergy status to narcotic agent; Z88.8 Allergy status to other drugs, medicaments and biological substances

== ENCOUNTER → 2020-05-25 | Outpatient (CLI) | payer MEDICARE, MEDICAID | LOC: M LABSMTC 10:22 | PROVIDERS: ATTEND Physician Assistant | DX: Z01.818 Encounter for other preprocedural examination (principal); Z11.59 Encounter for screening for other viral diseases ==

== ENCOUNTER → 2020-07-24 | Outpatient (CLI) | payer MEDICARE, MEDICAID | LOC: M PAIN 09:00 | PROVIDERS: ATTEND Family Medicine | DX: M54.17 Radiculopathy, lumbosacral region (principal) ==

== ENCOUNTER → 2020-08-03 | Outpatient (CLI) | payer MEDICARE, MEDICAID | LOC: M PAIN 11:19 | PROVIDERS: ATTEND Family Medicine | DX: M51.17 Intervertebral disc disorders with radiculopathy, lumbosacral region (principal) ==

== ENCOUNTER → 2020-10-12 | Outpatient (CLI) | payer MEDICARE, MEDICAID ==
--- NOTE | 2020-10-17 00:01 | ECWPNPC ---
PATIENT NAME: MARIA E FARMER : 1990 GENDER: FEMALE VISIT DATE: 10/12/2020 DISCHARGE DATE: 10/12/20 1230 VISIT LOCKED DATE TIME: PHYSICIAN: JAIRON MACDONALD RESOURCE: JAIRON MACDONALD REASON FOR APPOINTMENT 1. BACK PAIN HISTORY OF PRESENT ILLNESS GENERAL: - 30-YEAR-OLD FEMALE IN FOR CHRONIC PAIN FOLLOW-UP. SHE RATES HER PAIN CURRENTLY AT AN 8 OUT OF 10 AND DESCRIBES IT BURNING, SHARP, AND THROBBING. SHE FEELS HER MEDICATIONS ARE HELPFUL BUT DOES ADMIT THAT IT DOESN'T COMPLETELY COVER HER PAIN. FALL RISK SCREENING: SCREENING :NO FALLS REPORTED IN THE LAST YEAR PAIN SCREENING: PATIENT HAS A COMPLAINT OF ACUTE OR CHRONIC PAIN :YES LOCATION OF PAIN:LOW BACK, LEG(S), THIGH(S) INTENSITY OF PAIN (SCALE OF 1 TO 10):8 WHAT DOES YOUR PAIN FEEL LIKE:BURNING, SHARP, THROBBING DURATION:CONTINOUS PAIN IS INCREASED BY:ACTIVITIES, PROLONGED STANDING STAIRS PAIN IS DECREASED BY:USE OF PAIN MEDICATIONS, SITTING NURSING NOTE: -. PAIN CENTER INTAKE QUESTIONS: DO YOU HAVE A HISTORY OF MRSA? :NO DO YOU TAKE A BLOOD THINNERS? :NO DO YOU HAVE ANY BLEEDING DISORDERS? :NO ANY NEW NUMBNESS OR WEAKNESS IN YOUR LEGS OR ARMS? :NO ANY PACEMAKER,DEFIBRILLATOR, OR DORSAL COLUMN STIMULATOR? :NO DO YOU HAVE ANY RASHES OR OPEN SORES? :NO ARE YOU ALLERGIC TO IV DYE? :NO ARE YOU DIABETIC? :NO ANY NEW PROBLEMS WITH YOUR MEDICATIONS? :NO HAVE YOU RECEIVED A VACCINE IN THE PAST 30 DAYS? :NO DO YOU PLAN TO RECEIVE A VACCINE IN THE NEXT 21 DAYS? :YES IF SO WHAT VACCINE AND WHEN? INFLUENZA DATE NOT KNOWN DO YOU NEED ANY PRESCRIPTION? :NO DO YOU TAKE ANY IMMUNOSUPPRESSIVE MEDICATIONS? :NO IS THERE A CHANCE YOU COULD BE ? :NO ARE YOU BREAST FEEDING? :NO CURRENT MEDICATIONS TAKING ALBUTEROL SULFATE HFA 108 (90 BASE) MCG/ACT AEROSOL SOLUTION 2 PUFFS INHALATION EVERY 4-6 HOURS NEEDED TAKING MULTIVITAMINS CAPSULE 1CAP ORALLY DAILY TAKING VITAMIN B12 500 MCG TABLET 1 TABLET ORALLY ONCE A DAY TAKING CALCIUM 500 MG TABLET 1 TABLET WITH MEALS ORALLY TWICE A DAY TAKING CARAFATE 1 GM TABLET 1 TABLET ON AN EMPTY STOMACH ORALLY TWICE A DAY TAKING LYRICA 50 MG CAPSULE 1 CAPSULE ORALLY BID TAKING CYMBALTA 60 MG CAPSULE DELAYED RELEASE PARTICLES 1 CAPSULE ORALLY ONCE A DAY TAKING BELBUCA 75 MCG FILM 1 FILM TO THE GUM BUCALLY BID MDD2 TAKING AMITRIPTYLINE HCL 100 MG TABLET 1 TABLET AT BEDTIME ORALLY ONCE A DAY NOT-TAKING PERCOCET 5-325 MG TABLET 1 TABLET NEEDED ORALLY EVERY 6 HRS NOT-TAKING PRILOSEC ? MG CAPSULE DELAYED RELEASE 1 CAPSULE ORALLY BID NOT-TAKING PHENAZO 200 MG TABLET 1 TABLET AFTER MEALS ORALLY THREE TIMES A DAY NOT-TAKING LEVOTHYROXINE SODIUM 75 MCG TABLET 1 TABLET ON AN EMPTY STOMACH IN THE MORNING ORALLY ONCE A DAY NOT-TAKING TAMSULOSIN HCL 0.4 MG CAPSULE 1 CAPSULE 30 MINUTES AFTER THE SAME MEAL EACH DAY ORALLY ONCE A DAY NOT-TAKING BACTRIM DS 800-160 MG TABLET 1 TABLET ORALLY TWICE A DAY MEDICATION LIST REVIEWED AND RECONCILED WITH THE PATIENT PAST MEDICAL HISTORY CHRONIC LOW BACK PAIN-LUMBAR INTERVERTBRAL DISC PROTRUSION/EXTRUSION.LEFT SIDED RADICULOPATHY- PAIN CLINIC SPONDYLOLISTHESIS L5-S1 PCOS OBESITY KIDNEY STONES ALLERGIES SULFA: RASH - ALLERGY CAT: ITCHY EYES,SNEEZING - ALLERGY KEFLEX: RASH - ALLERGY CODEINE SULFATE: RASH - ALLERGY SURGICAL HISTORY GASTRIC BYPASS 11/2013 FAMILY HISTORY FATHER: 76 YRS, HTN, HEART ATTACK, DM TYPE2 MOTHER: ALIVE, DM TYPE 2 SIBLINGS: ALIVE MATERNAL GRAND MOTHER: HEART ATTACK MATERNAL AUNT: MESOTHELIOMA 3 BROTHER(S) - HEALTHY. FAMILY HX OF KIDNEY STONES AND FREQUENT UTI'S. SOCIAL HISTORY GENERAL: TOBACCO USE ARE YOU A:CURRENT SMOKER HOW OFTEN DO YOU SMOKE CIGARETTES?EVERY DAY HOW SOON AFTER YOU WAKE UP DO YOU SMOKE YOUR FIRST CIGARETTE?6-30 MIN HOW MANY CIGARETTES A DAY DO YOU SMOKE?6-10 ARE YOU INTERESTED IN QUITTING?READY TO QUIT PATIENT COUNSELED ON THE DANGERS OF TOBACCO USE AND URGED TO QUIT:05/05/2020 COUNSELED THE PATIENT ON TOBACCO USE, CESSATION FOTGHRMR92/26/2020 SMOKING CESSATION INFORMATION GIVEN05/05/2020 LATEX QUESTIONNAIRE LATEX ALLERGY : HAVE YOU EVER DEVELOPED ANY TYPE OF REACTION AFTER HANDLING LATEX PRODUCTS SUCH RUBBER GLOVES, CONDOMS, DIAPHRAGMS, BALLOONS, SOCKS, OR UNDERWEAR?NO LATEX ALLERGY : HAVE YOU EVER DEVELOPED ANY TYPE OF REACTION DURING OR AFTER DENTAL APPOINTMENT, VAGINAL/RECTAL EXAMINATION, SURGICAL PROCEDURE, OR ANY OTHER EXPOSURE?NO DATE ASKED : 05/05/2020 LATEX RISK : HAVE YOU EVER HAD ANY DIFFICULTY BREATHING OR HIVES AFTER EATING OR HANDLING ANY FRUITS, OR VEGETABLES; SUCH KIWI, BANANAS, STONE FRUITS, OR CHESTNUTSNO LATEX RISK : DO YOU HAVE A PREVIOUS PERSONAL HISTORY OF MORE THAN NINE SURGERIES, SPINA BIFIDA, OR REPEATED CATHERIZATIONS? NO LATEX RISK : ARE YOU FREQUENTLY EXPOSED TO LATEX PRODUCTS IN YOUR OCCUPATION?NO ALCOHOL SCREENING POINTS: 0, INTERPRETATION: NEGATIVE. RECREATIONAL DRUG USE DENIES. CAFFEINE NONE. SEXUAL HX HAD SEX IN THE LAST 12 MONTHS (VAGINAL, ORAL, OR ANAL)?: YES, WITH: MEN ONLY, USE PROTECTION?: YES, HOW OFTEN?: ALL OF THE TIME, PREVENTION STRATEGIES DISCUSSED:: CONDOMS, HAVE YOU EVER HAD AN STD?: NO. SIKH NO MORMONISM BELIEFS THAT WOULD IMPACT HEALTH CARE. LANGUAGE NORTHER[place] IRISH. DOMESTIC VIOLENCE NONE. OCCUPATION: [employer] FOR BACK PAIN. DIET: REGULAR DIET. EXERCISE: WALKS. MARITAL STATUS: SINGLE. OTHERS AT HOME: BF AND MOM. PAIN CLINIC PFS, CLERGY, PUBLIC HEALTH REFERRALS WAS THE PROVIDER NOTIFIED OF ANY PERTINENT INFO?YES HAS THE PATIENT BEEN EDUCATED REGARDING HIS/HER PLAN OF CARE?YES ORIENTED TO PAIN MANAGEMENT HAS THE PATIENT BEEN EDUCATED REGARDING PAIN, THE RISK FOR PAIN, THE IMPORTANCE OF EFFECTIVE PAIN MANAGEMENT, AND THE PAIN ASSESSMENT PROCESS?YES HOUSING: RENTS APARTMENT. ADVANCE DIRECTIVE ADVANCE DIRECTIVE DISCUSSED WITH PATIENT:YES PT STATES THAT SHE DOES NOT HAVE A HCP, DECLINES ASSISTANCE OR INFORMATION AT THIS TIME HOSPITALIZATION/MAJOR DIAGNOSTIC PROCEDURE SURGERY PERFORATED ULCER 09/2014 REVIEW OF SYSTEMS CONSTITUTIONAL: ANY RECENT FEVER NO . CHILLS NO . WEIGHT CHANGE OF UNKNOWN REASONS NO . GASTROENTEROLOGY: NEW UNEXPLAINABLE CHANGES IN BOWEL CONTROL NO . CONSTIPATION NO . GENITOURINARY: ANY NEW CHANGE IN BLADDER CONTROL? NO . NEUROLOGY: NEW ONSET DIZZINESS OR NEUROLOGICAL CHANGES NOT MENTIONED NO . NEW NUMBNESS OR PAIN PATTERNS NOT MENTIONED AND PERTINENT TO TODAY'S VISIT NO . CARDIOLOGY: NEW CHEST PRESSURE NO . NEW CHEST PAIN NO . RESPIRATORY: UNEXPLAINABLE COUGH NO . NEW SHORTNESS OF BREATH NO . VITAL SIGNS WT 212.4 LBS, HT 67 IN, BMI 33.26 INDEX, BP 121/73 MM HG, HR 84 /MIN, RR 18 /MIN, TEMP 97.0 F, OXYGEN SAT % 99%, SAFE IN ENV? (Y/N) YES, NA INITIALS MA 11:36112/13/19 1147 JUAN. L. SPINACI RN. EXAMINATION GENERAL EXAMINATION: GENERALNO ACUTE DISTRESS, WELL NOURISHED AND HYDRATED. PSYCHAPPROPRIATE MOOD AND AFFECT . LUNGS:CLEAR TO AUSCULTATION BILATERALLY, NO WHEEZES, RHONCHI, RALES. HEART:NO MURMURS, REGULAR RATE AND RHYTHM. ASSESSMENTS RADICULOPATHY, LUMBOSACRAL REGION - M54.17 (PRIMARY) TREATMENT OTHERS REFILL BELBUCA FILM, 150 MCG, 1 FILM TO THE GUM, BUCALLY, BID MDD2, 30 DAYS, 60, REFILLS 0 NOTES: 30-YEAR-OLD FEMALE IN FOR CHRONIC PAIN FOLLOW-UP. GIVEN PRESENTING SYMPTOMS RECOMMENDED INCREASING BELBUCA 150 MCG TWICE A DAY WITH FOLLOW-UP IN ONE MONTH TO DETERMINE EFFICACY TREATMENT. PATIENT HAS EXPRESSED UNDERSTANDING OF WAS IN AGREEMENT WITH TREATMENT PLAN. GIVEN TIME TO ASK QUESTIONS AND EXPRESS CONCERNS. , ISTOP REGISTRY REVIEWED AND DEMONSTRATES COMPLLIANCE. (REF # [id number] ) BRINGS IN MEDICATIONS WHICH IS APPROPRIATE FOR WHAT WAS DISPENSED. RECENT URINE TOXICOLOGY REVIEWED. NO UNAUTHORIZED MEDICATIONS. NO ILLICIT SUBSTANCES AND PRESCRIBED MEDICATIONS WERE PRESENT. PROCEDURE CODES FA211 ESTABILISHED PATIENT [facility] CHARGE DISPOSITION & COMMUNICATION FOLLOW UP 4 WEEKS (REASON: MEDICATION INCREASE ) ELECTRONICALLY SIGNED BY ISAMAR MARRUFO ON 10/16/2020 AT 08:44 AM EST DISCLAIMER : THIS IS A VISIT SUMMARY EXTRACTED FROM THE [employer] CHART. IT IS NOT A COPY OF THE [employer] PROGRESS NOTE. ROCKY
== END ==
LOC: M PAIN 11:15
PROVIDERS: ATTEND Family Medicine
DX: M51.16 Intervertebral disc disorders with radiculopathy, lumbar region (principal); F17.210 Nicotine dependence, cigarettes, uncomplicated; Z79.899 Other long term (current) drug therapy; Z88.2 Allergy status to sulfonamides; Z88.5 Allergy status to narcotic agent; Z88.1 Allergy status to other antibiotic agents; J30.81 Allergic rhinitis due to animal (cat) (dog) hair and dander

== ENCOUNTER 2021-01-09 13:13 | Emergency (ER) | payer MEDICARE, MEDICAID ==
[~2021-01-09] VITALS: Ht 170.2 cm; Wt 88.8 kg
[~2021-01-09 13:13] MED LIST changes: +METH-1164 PO; -METH1TAB40 PO
[2021-01-09 13:14] VITALS: BP 143/84
[2021-01-09] MEDS ORDERED: PREG50CA2 (13:25)
[2021-01-09] MEDS ORDERED: BELB150M (13:25)
== END 2021-01-09 14:14 | disposition home or self-care (01) ==
LOC: M ED 13:13
DX: O34.61 Maternal care for abnormality of vagina, first trimester (principal); O99.891 Other specified diseases and conditions complicating pregnancy; G89.29 Other chronic pain; M54.9 Dorsalgia, unspecified; O99.841 Bariatric surgery status complicating pregnancy, first trimester; O99.331 Smoking (tobacco) complicating pregnancy, first trimester; Z88.2 Allergy status to sulfonamides; Z88.5 Allergy status to narcotic agent; Z88.6 Allergy status to analgesic agent; Z88.1 Allergy status to other antibiotic agents

== ENCOUNTER → 2021-01-24 | Outpatient (REF) | payer MEDICARE, MEDICAID ==
[~2021-01-24] MED LIST changes: +BELB150M; +PREG50CA2
[2021-01-24 12:32] LABS: HEMATOCRIT 43.7 % (36.0-47.0); HEMOGLOBIN 14.6 g/dl (12.0-15.5); MEAN CORPUSCULAR HEMOGLOBIN 31.9 pg (27.0-33.0); MEAN CORPUSCULAR HGB CONC 33.4 g/dl (32.0-36.5); MEAN CORPUSCULAR VOLUME 95.4 fl (80.0-96.0); PLATELET COUNT, AUTOMATED 341 10^3/uL (150-450); RED BLOOD COUNT 4.58 10^6/uL (4.00-5.40); WHITE BLOOD COUNT 8.2 10^3/uL (4.0-10.0)
[2021-01-24 13:11] LABS: AMPHETAMINES URINE REFLEX NEGATIVE (NEGATIVE); BARBITURATES URINE REFLEX NEGATIVE (NEGATIVE); BENZODIAZEPINES URINE REFLEX NEGATIVE (NEGATIVE); CANNABINOIDS URINE REFLEX NEGATIVE (NEGATIVE); COCAINE METABOLITE URINE REFLE NEGATIVE (NEGATIVE); METHADONE URINE REFLEX NEGATIVE (NEGATIVE); OPIATES URINE REFLEX NEGATIVE (NEGATIVE); PHENCYCLIDINE URINE REFLEX NEGATIVE (NEGATIVE)
[2021-01-24 14:40] LABS: HCG, SERUM QUANTITATIVE 24772 MIU/ML; HEPATITIS C VIRUS ABY INDEX < 0.0 INDEX (<0.8)
[2021-01-24 16:43] LABS: HIV 1&2 SCREEN CENTAUR NEGATIVE (NEGATIVE)
== END ==
LOC: M LAB REF 11:15
PROVIDERS: ATTEND Advanced Practice Midwife
DX: O36.80X0 Pregnancy with inconclusive fetal viability, not applicable or unspecified (principal)

== ENCOUNTER → 2021-02-06 | Outpatient (CLI) | payer MEDICARE, MEDICAID ==
--- NOTE | 2021-02-06 09:52 | REP ---
INDICATION: DATING/VIABILITY. COMPARISON: None. TECHNIQUE: Transabdominal and endovaginal probe ultrasound utilized. FINDINGS: On both transabdominal and endovaginal probes there is a gestational sac in the body and fundus of the uterus a pole evident. The pole has a crown-rump length of 1.6 cm which corresponds to 8 weeks giving a EDC 09/18/2021. heart rate noted at 1:56 BPM. No subchorionic hemorrhage is noted on transabdominal or endovaginal probes. No fluid in the endocervical canal. On endovaginal probes the ovaries show no mass, adjacent fluid or other significant asymmetry. Color Doppler shows normal blood flow to both ovaries. IMPRESSION: Viable single intrauterine gestation at 8 weeks 0 days by today's composite sonographic criteria. No subchorionic bleed, adnexal mass or free fluid. heart rate 156 BPM <Electronically signed by Laurent Oneil > 02/06/21 0949
== END ==
LOC: M WHC 09:02
PROVIDERS: ATTEND Advanced Practice Midwife
DX: O36.80X0 Pregnancy with inconclusive fetal viability, not applicable or unspecified (principal); Z3A.08 8 weeks gestation of pregnancy

== ENCOUNTER → 2021-03-19 | Outpatient (CLI) | payer MEDICARE, MEDICAID | LOC: M WHC 13:00 | PROVIDERS: ATTEND Obstetrics & Gynecology | DX: Z36.89 Encounter for other specified antenatal screening (principal); Z3A.14 14 weeks gestation of pregnancy ==

== ENCOUNTER → 2021-04-04 | Outpatient (REF) | payer MEDICARE, MEDICAID ==
[2021-04-04 17:29] LABS: HEMATOCRIT 37.6 % (36.0-47.0); HEMOGLOBIN 12.5 g/dl (12.0-15.5); MEAN CORPUSCULAR HEMOGLOBIN 31.8 pg (27.0-33.0); MEAN CORPUSCULAR HGB CONC 33.2 g/dl (32.0-36.5); MEAN CORPUSCULAR VOLUME 95.7 fl (80.0-96.0); PLATELET COUNT, AUTOMATED 248 10^3/uL (150-450); RED BLOOD COUNT 3.93 10^6/uL (4.00-5.40); WHITE BLOOD COUNT 7.4 10^3/uL (4.0-10.0)
[2021-04-04 17:56] LABS: IRON (FE) 61 UG/DL (50-170)
[2021-04-04 18:06] LABS: TOTAL 25(OH) VITAMIN D 18.1 NG/ML (30.0-100.0); VITAMIN B12 LEVEL 282 PG/ML (247-911)
[2021-04-04 18:09] LABS: FOLATE > 24.0 NG/ML (>5.4)
[2021-04-04 18:11] LABS: HEMOGLOBIN A1c 5.1 %
[2021-04-04 18:46] LABS: HIV 1&2 SCREEN CENTAUR NEGATIVE (NEGATIVE)
== END ==
LOC: M PLALAB 14:42
PROVIDERS: ATTEND Advanced Practice Midwife
DX: Z34.01 Encounter for supervision of normal first pregnancy, first trimester (principal); K90.9 Intestinal malabsorption, unspecified; Z79.899 Other long term (current) drug therapy

== ENCOUNTER → 2021-05-29 | Outpatient (CLI) | payer MEDICARE, MEDICAID ==
--- NOTE | 2021-05-29 10:46 | REP ---
INDICATION: ANATOMY. COMPARISON: Comparison study February 06, 2021.. TECHNIQUE: Transabdominal obstetric sonography. FINDINGS: Scanning through the gravid uterus demonstrates a viable single intrauterine gestation in cephalic lie. motion is observed and heart rate is recorded at 152 beats per minute. A anterior placenta is seen, grade 1, without evidence of placenta previa. Closed cervical length is measured at 4.1 cm transabdominally. No extrauterine abnormality is observed. Amniotic fluid is subjectively normal. No anomaly is seen. The following anatomic structures are identified and felt to be sonographically unremarkable: cranium, choroid plexus, cavum, cerebellum and posterior fossa, face and profile, lungs, four-chamber heart with left and right ventricular outflow tract views, diaphragm, left-sided stomach, abdominal wall cord insertion, three-vessel umbilical cord, kidneys and bladder, spine, and upper and lower extremities. Biometry chart: BPD 6.0 cm, 24 weeks 3 days Head circumference 22.1 cm, 24 weeks 1 day Abdominal circumference 19.7 cm, 24 weeks 3 days Femur length 4.2 cm, 23 weeks 6 days Humeral length 3.9 cm, 24 weeks 0 days HC AC ratio normal 1.12 Cephalic index normal 0.75 Estimated weight 666 g, 1 lb 7 oz, 42nd percentile for 24 weeks 1 day IMPRESSION: Viable single intrauterine gestation at 24 weeks 1 days by today's composite sonographic criteria. YI by today's sonography September 17, 2021. No complication identified. Expected gestational age estimate from known YI is 20/4 weeks 1 day as well YI September 17, 2021. <Electronically signed by Efrem Jeffries > 05/29/21 [id number]
== END ==
LOC: M WHC 08:07
PROVIDERS: ATTEND Obstetrics & Gynecology
DX: Z36.89 Encounter for other specified antenatal screening (principal); Z3A.24 24 weeks gestation of pregnancy

== ENCOUNTER → 2021-07-05 | Outpatient (CLI) | payer MEDICARE, MEDICAID ==
[2021-07-05 15:32] LABS: HEMATOCRIT 37.8 % (36.0-47.0); HEMOGLOBIN 12.6 g/dl (12.0-15.5); MEAN CORPUSCULAR HEMOGLOBIN 32.6 pg (27.0-33.0); MEAN CORPUSCULAR HGB CONC 33.3 g/dl (32.0-36.5); MEAN CORPUSCULAR VOLUME 97.9 fl (80.0-96.0); PLATELET COUNT, AUTOMATED 319 10^3/uL (150-450); RED BLOOD COUNT 3.86 10^6/uL (4.00-5.40); WHITE BLOOD COUNT 11.5 10^3/uL (4.0-10.0)
[2021-07-05 16:55] LABS: GC DNA AMPLIFICATION NEGATIVE (NEGATIVE)
== END ==
LOC: M PLALAB 12:45
PROVIDERS: ATTEND Advanced Practice Midwife
DX: Z36.89 Encounter for other specified antenatal screening (principal); Z3A.28 28 weeks gestation of pregnancy

== ENCOUNTER → 2021-08-14 | Outpatient (REF) | payer MEDICARE, MEDICAID | LOC: M SFHCWAGY 13:14 | PROVIDERS: ATTEND Obstetrics & Gynecology | DX: Z36.89 Encounter for other specified antenatal screening (principal) ==

== ENCOUNTER → 2021-09-06 | Outpatient (CLI) | payer MEDICARE, MEDICAID ==
[~2021-09-06] MED LIST changes: -BELB150M; +BELB150M PO; -CYMB60CA3 PO; +CYMB60CA4 PO; +TYLE650T38 PO
== END ==
LOC: M LABSMTC 09:06
PROVIDERS: ATTEND Anesthesiology
DX: Z01.812 Encounter for preprocedural laboratory examination (principal); Z20.822 Contact with and (suspected) exposure to COVID-19

== ENCOUNTER 2021-09-10 09:30 | Inpatient (IN) | payer MEDICARE, MEDICAID ==
[~2021-09-10] VITALS: Ht 167.6 cm; Wt 95.8 kg
[2021-09-11] VITALS (9 sets, daily range): BP systolic 101–136; BP diastolic 57–87
--- OUTSIDE RECORDS SUMMARY | 2021-09-11 05:34 | CCD ---
Author Author [facility] [employer] Organization [facility] [employer] Address Unknown Phone Unavailable Care Team Providers Care Proposal Engineer Name Role Phone Gita Clements Unavailable PROBLEMS Type Condition ICD9-CM Code [id number] Code Onset Dates Condition S tatus W/U Status Risk SNOMED Code Notes Problem Asthma, unspecified, unspecified status 493.90 Active confirmed 49943551 Problem Polycystic ovaries 256.4 Active confirmed 6 0846273 Problem Ureteral calculi 592.1 Active confirmed 310 59789 Problem Bariatric surgery status complicating , third trimester O99.843 Active confirmed Problem Nondependent tobacco use disorder 305.1 Active confirmed 906924199 Problem Bariatric surgery status complicating the puerperium O99.845 Active confirmed Problem Supervision of other normal Z34.80 Active 401232053 Problem Bariatric surgery status complicating , first trimester O99.841 Active confirmed Problem Bariatric surgery status complicating , second trimester O99.842 Active confirmed 832225329 Problem Gastric ulcer K25.9 Active confirmed 174921 006 ALLERGIES Allergen (clinical drug ingredient) Drug/Non Drug Allergy do cumented on EMR Reaction Allergy Type Onset Date Status Cat dander Cat Dander itchy eyes,sneezing Drug Allergy Act rafael Sulfasalazine Sulfa Antibiotics Rash Drug Allergy Ac tive ibuprofen Ibuprofen(NDC Code:[address]-13) Gastric ulcers Drug Jorge rgy Active codeine Codeine Sulfate(NDC Code:[address]-29) RASH Drug Al lergy Active Keflex Rash Drug Allergy Active ENCOUNTERS from 1990 to 2021-08-30 Encounter Location Date Provider Diagnosis [facility] [address] [place] [address] [place] [address] Aug, Gita Clements Bariatric surgery st atus complicating , third trimester O99.843 and 36 weeks gestation of Z3A.36 IMMUNIZATIONS Vaccine Route Administration Date Status TDAP 0.5mL Boostrix IM Intramuscular Jul 30, 2021 Administere d SOCIAL HISTORY Tobacco Use: Social History Observation Description Date Details (start date - stop date) Current Smoker Sex Assigned At : Social History Observation Description Sex Assigned At Unknown Tobacco Use: Question Answer Notes Are you a: current smoker Smoking Cessation Information Given 05/05/2020 Patient counseled on the dangers of tobacco use and urged to quit: 05/05/2020 How many cigarettes a day do you smoke? 6-10 Are you interested in quitting? Ready to quit Counseled the patient on tobacco use, cessation provided REASON FOR REFERRAL No Information VITAL SIGNS Weight 206.8 lbs Aug, Weight-kg 93.8 kg Aug, Height 67 in Aug, BMI 32.39 kg/m2 Aug, Blood pressure systolic 112 mm Hg Aug, Blood pressure diastolic 70 mm Hg Aug, MEDICATIONS Medication SIG (Take, Route, Frequency, Duration) Notes Start Da te End Date Status Cymbalta 60 MG 1 capsule Orally Once a day for 30 day(s) Not-Taking Alcohol Wipes 70 % as directed O24.419 topically four times phi y for 30 Days Jun, Active Lyrica 50 MG 1 capsule Orally bid No t-Taking Glucose Monitor - as directed O24.419 four times daily for 30 Da ys duplicate Jun, Not-Taking Alcohol Wipes 70 % as directed O24.419 topically four times daily for 30 Days duplicate Jun, Not-Taking Tylenol Active Test Strips - as directed O24.419 four times daily for 30 Days Jun, Active Lancets - as directed O24.419 four times daily for 30 Days Jun, Active Glucose Monitor - as directed O24.419 four times daily for 30 Da ys Jun, Active Protonix 20 MG 1 tablet Orally Once a day for 60 day(s) Apr, Active Levothyroxine Sodium 75 MCG 1 tablet on an empty stoma ch in the morning Orally Once a day for 30 day(s) Not-Frank ing Multivitamins 1cap Orally daily Acti ve Percocet 5-325 MG 1 tablet as needed Orally every 6 hrs Not-Taking Tamsulosin HCl 0.4 MG 1 capsule 30 minutes after t he same meal each day Orally Once a day for 30 day(s) Not-Frank ing Suboxone 8-2 MG 1 film under the tongue and allow to dissolve Sublingual Once a day Not-Taking Bactrim DS 800-160 MG 1 tablet Orally Twice a day for 10 day(s) Jan, Not-Taking Vitamin B12 500 MCG 1 tablet Orally Once a day for 30 day(s) Active Test Strips - as directed O24.419 four times daily for 30 Days duplicate Jun, Not-Taking Lancets - as directed O24.419 four times daily for 30 Days duplicate Jun, Not-Taking Calcium 500 MG 1 tablet with meals Orally Twice a day for 30 day(s) Active Amitriptyline HCl 100 MG 1 tablet at bedtime Orally Once a day f or 30 day(s) Not-Taking Carafate 1 GM 1 tablet on an empty stomach Orally Twice a day for 3 0 day(s) Active Belbuca 150 MCG 1 film to the gum Bucally bid mdd2 for 30 days Aug, Not-Taking Albuterol Sulfate HFA 108 (90 Base) MCG/ACT 2 puffs In halation Every 4-6 hours as needed Active Phenazo 200 MG 1 tablet after meals Orally Three times a day for 2 da y(s) Not-Taking PriLOSEC ? MG 1 capsule Orally bid for 30 day(s) Not-Taking Subutex Active PROCEDURES No Information RESULTS No Results REASON FOR VISIT 1 WK PN MEDICAL (GENERAL) HISTORY Type Description Date Medical History Chronic low back pain-lumbar intervertbral disc protrusion/extrusion.left sided radiculopathy- pain clinic Medical History Spondylolisthesis L5-S1 Medical History PCOS Medical History Obesity Medical History Kidney stones Medical History Perforated Gastric Ulcers Surgical History Gastric bypass 11/2013 Hospitalization History surgery Hospitalization History perforated ulcer 09/2014 Goals Section No Information Health Concerns No Information MEDICAL EQUIPMENT No Information MENTAL STATUS No Information FUNCTIONAL STATUS No Information ASSESSMENTS Encounter Date Diagnosis Assessment Notes Treatment Notes Treatm ent Clinical Notes Aug, Bariatric surgery status com plicating , third trimester (ICD-10 - O99.843) Aug, 36 weeks gestation of (ICD-10 - Z3A.36 ) PLAN OF TREATMENT Next Appt Details 1 Week Reason: Provider Name:Alma López, 2021-09-04 0 3:20:00 PM, [address] [place] [address], [address] [place] [address], [place], [address], Provider Name:Sarah Dugan, 2021-09-05 02:40:00 PM, [address] [place] [address], , [place], [place], [address] [place] [address], Provider Name:Jaspreet Banda, 2021-09-11 07:30:00 AM, [address] [place] [address], [address] [place] [address], [place], [address], Provider Name:Alma López, 2021-09-11 0 7:30:00 AM, [address] [place] [address], [address] [place] [address], [place], [place], [address] [place] [address], Provider Name:Jaspreet Banda, 2021-09-24 01:15:00 PM, [address] [place] [address], [address] [place] [address], [place], [place], [address] [place] [address], Provider Name:Alma Linton Rene, 2021-11-01 0 9:20:00 AM, [address] [place] [address], [address] [place] [address], [place], [address], Follow Up:1 WeekPrenatal Insurance Providers Payer Name Payer Address Payer Phone Insured Name Patient Relati onship to Insured Coverage Start Date Coverage End Date MEDICARE Part A and B [address] [facility] [id number] MARIA E FARMER self MEDICAID [facility] [employer] [address] [facility] [id number] MARIA E FARMER self
--- OUTSIDE RECORDS SUMMARY | 2021-09-11 05:34 | CCD ---
Author Author [facility] Syst em[facility] Organization [facility] Syst ems Address Unknown Phone Unavailable Care Team Providers Care Information Technology Intern Name Role Phone Alma López Unavailable PROBLEMS Type Condition ICD9-CM Code [id number] Code Onset Dates Condition S tatus W/U Status Risk SNOMED Code Notes Problem Asthma, unspecified, unspecified status 493.90 Active confirmed 41506689 Problem Polycystic ovaries 256.4 Active confirmed 6 8492390 Problem Ureteral calculi 592.1 Active confirmed 310 14896 Problem Bariatric surgery status complicating , third trimester O99.843 Active confirmed Problem Nondependent tobacco use disorder 305.1 Active confirmed 779733695 Problem Bariatric surgery status complicating the puerperium O99.845 Active confirmed Problem Supervision of other normal Z34.80 Active 898608305 Problem Bariatric surgery status complicating , first trimester O99.841 Active confirmed Problem Bariatric surgery status complicating , second trimester O99.842 Active confirmed 415787107 Problem Gastric ulcer K25.9 Active confirmed 573196 006 ALLERGIES Allergen (clinical drug ingredient) Drug/Non Drug Allergy do cumented on EMR Reaction Allergy Type Onset Date Status Cat dander Cat Dander itchy eyes,sneezing Drug Allergy Act rafael Sulfasalazine Sulfa Antibiotics Rash Drug Allergy Ac tive ibuprofen Ibuprofen(ND Code:[address]-40) Gastric ulcers Drug Jorge rgy Active codeine Codeine Sulfate(ND Code:[address]-85) RASH Drug Al lergy Active Keflex Rash Drug Allergy Active ENCOUNTERS from 1989 to 2021-09-05 Encounter Location Date Provider Diagnosis [facility] [address] [place] [address] [place] [address] Aug, [facility] Bariatric surgery st atus complicating , third trimester O99.843 IMMUNIZATIONS Vaccine Route Administration Date Status TDAP [...] FOR REFERRAL No Information VITAL SIGNS Weight 209.6 lbs Aug, Weight-kg 95.07 kg Aug, Height 67 in Aug, BMI 32.828 kg/m2 Aug, Blood pressure systolic 110 mm Hg Aug, Blood pressure diastolic 68 mm Hg Aug, MEDICATIONS Medication SIG (Take, Route, Frequency, Duration) Notes Start Da te End Date Status Calcium 500 MG 1 tablet with meals Orally Twice a day for 30 day(s) Active Glucose Monitor - as directed O24.419 four times daily for 30 Da ys Jun, Not-Taking Tamsulosin HCl 0.4 MG 1 capsule 30 minutes after t he same meal each day Orally Once a day for 30 day(s) Not-Frank ing Lancets - as directed O24.419 four times daily for 30 Days duplicate Jun, Not-Taking Alcohol Wipes 70 % as directed O24.419 topically four times phi y for 30 Days Jun, Active Glucose Monitor - as directed O24.419 four times daily for 30 Da ys duplicate Jun, Not-Taking Bactrim DS 800-160 MG 1 tablet Orally Twice a day for 10 day(s) Jan, Not-Taking Test Strips - as directed O24.419 four times daily for 30 Days Jun, Not-Taking Lancets - as directed O24.419 four times daily for 30 Days Jun, Not-Taking Test Strips - as directed O24.419 four times daily for 30 Days duplicate Jun, Not-Taking Subutex Active Percocet 5-325 MG 1 tablet as needed Orally every 6 hrs Not-Taking Albuterol Sulfate HFA 108 (90 Base) MCG/ACT 2 puffs In halation Every 4-6 hours as needed Active Carafate 1 GM 1 tablet on an empty stomach Orally Twice a day for 3 0 day(s) Not-Taking Protonix 20 MG 1 tablet Orally Once a day for 60 day(s) Apr, Active Multivitamins 1cap Orally daily Acti ve PriLOSEC ? MG 1 capsule Orally bid for 30 day(s) Not-Taking Tylenol Active Alcohol Wipes 70 % as directed O24.419 topically four times daily for 30 Days duplicate Jun, Not-Taking Phenazo 200 MG 1 tablet after meals Orally Three times a day for 2 da y(s) Not-Taking Vitamin B12 500 MCG 1 tablet Orally Once a day for 30 day(s) Active Levothyroxine Sodium 75 MCG 1 tablet on an empty stoma ch in the morning Orally Once a day for 30 day(s) Not-Frank ing Cymbalta 60 MG 1 capsule Orally Once a day for 30 day(s) Not-Taking Belbuca 150 MCG 1 film to the gum Bucally bid mdd2 for 30 days Aug, Not-Taking Lyrica 50 MG 1 capsule Orally bid No t-Taking Amitriptyline HCl 100 MG 1 tablet at bedtime Orally Once a day f or 30 day(s) Not-Taking Suboxone 8-2 MG 1 film under the tongue and allow to dissolve Sublingual Once a day Not-Taking PROCEDURES No Information RESULTS No Results REASON FOR VISIT 1WK PN & PRE OP SURG 09/11/21 MEDICAL (GENERAL) HISTORY Type Description Date Medical [...] plicating , third trimester (ICD-10 - O99.843) Pre-Operative CounselingProcedure: sectionSurgeon: Alma Geovanny López: Patient has been counseling regarding the risks of the procedure to include anesthesia risks to include , bleeding/need for blood transfusion, infection, damage to internal organs, postoperative pain and need for future surgery based on findings. She understands these risks and wishes to proceed with the above procedures. PLAN OF TREATMENT Treatment Notes Assessment Notes Clinical Notes Bariatric surgery status complicating , third trime ster Pre-Operative CounselingProcedure: sectionSurgeon: Alma Omaira Lópezt: Patient has been counseling regarding the risks of the procedure to include anesthesia risks to include , bleeding/need for blood transfusion, infection, damage to internal organs, postoperative pain and need for future surgery based on findings. She understands these risks and wishes to proceed with the above procedures. Next Appt Details Provider Name:Jaspreet Banda 2021-09-11 07:30:00 AM, [address] [place] [address], [place], [address], Provider Name:Alma López 2021-09-11 0 7:30:00 AM, [address] [place], [place] [address], [place], [address], Provider Name:Jaspreet Banda 2021-09-24 01:15:00 PM, [address] [place] [address], [place], [address], Provider Name:Alma Linton Rene 2021-11-01 0 9:20:00 AM, [address] [place] [address], [place], [address], Insurance Providers Payer Name Payer Address Payer Phone Insured Name Patient Relati onship to Insured Coverage Start Date Coverage End Date MEDICAID [id number] [address] [facility] [address] MARIA E FARMER MEDICARE Part A and B [address] [facility] [id number] [phone] MARIA E FARMER
--- OUTSIDE RECORDS SUMMARY | 2021-09-11 05:34 | CCD ---
Author Author [facility] Syst ems Organization [facility] Syst ems Address Unknown Phone Unavailable Care Team Providers Care Commercial Horticulture Instructor Name Role Phone Gita Clements Unavailable PROBLEMS Type Condition ICD9-CM Code [id number] Code Onset Dates Condition S tatus W/U Status Risk SNOMED Code Notes Problem Asthma, unspecified, unspecified status 493.90 Active confirmed 64441843 Problem Polycystic ovaries 256.4 Active confirmed 6 3885404 Problem Ureteral calculi 592.1 Active confirmed 310 74781 Problem Bariatric surgery status complicating , third trimester O99.843 Active confirmed Problem Nondependent tobacco use disorder 305.1 Active confirmed 223018450 Problem Bariatric surgery status complicating the puerperium O99.845 Active confirmed Problem Supervision of other normal Z34.80 Active 809085944 Problem Bariatric surgery status complicating , first trimester O99.841 Active confirmed Problem Bariatric surgery status complicating , second trimester O99.842 Active confirmed 828180755 Problem Gastric ulcer K25.9 Active confirmed 975134 006 ALLERGIES Allergen (clinical drug ingredient) Drug/Non Drug Allergy do cumented on EMR Reaction Allergy Type Onset Date Status Cat dander Cat Dander itchy eyes,sneezing Drug Allergy Act rafael Sulfasalazine Sulfa Antibiotics Rash Drug Allergy Ac tive ibuprofen Ibuprofen(NDC Code:[address]-47) Gastric ulcers Drug Jorge rgy Active codeine Codeine Sulfate(NDC Code:[address]-27) RASH Drug Al lergy Active Keflex Rash Drug Allergy Active ENCOUNTERS from 1989 to 2021-08-30 Encounter Location Date Provider Diagnosis [facility] [address] [place] [address] [place] [address] Aug, Gita Clements IMMUNIZATIONS Vaccine Route Administration Date Status TDAP [...] REASON FOR REFERRAL No Information VITAL SIGNS No information MEDICATIONS Medication SIG (Take, Route, Frequency, Duration) [...] Information RESULTS No Results REASON FOR VISIT No Information MEDICAL (GENERAL) HISTORY Type Description Date Medical [...] No Information FUNCTIONAL STATUS No Information ASSESSMENTS No Information PLAN OF TREATMENT Next Appt Details Provider Name:Alma Shaila Shepardn, 2021-09-04 0 3:20:00 PM, [address] [place] [address], , [place], [address], Provider Name:Sarah Dugan, 2021-09-05 02:40:00 PM, [address] [facility], , [place], [address], Provider Name:Jaspreet Banda, 2021-09-11 07:30:00 AM, [address] [place] [address], , [place], [address], Provider Name:Alma López, 2021-09-11 0 7:30:00 AM, [address] [place] [address], , [place], [address], Provider Name:Jaspreet Banda, 2021-09-24 01:15:00 PM, [address] [place] [address], , [place], [address], Provider Name:Alma López, 2021-11-01 0 9:20:00 AM, [address] [place] [address], , [place], [address], Insurance Providers Payer Name Payer Address Payer Phone Insured Name Patient Relati onship to Insured Coverage Start Date Coverage End Date MEDICAID [employer] [address] [facility] [id number] [phone] MARIA E FARMER MEDICARE Part A and B [address] [facility] [address] MARIA E FARMER
--- OUTSIDE RECORDS SUMMARY | 2021-09-11 05:34 | CCD ---
Author Author [facility]st [facility] Organization [facility] Address Unknown Phone Unavailable Care Team Providers Care Instrument Fitter Name Role Phone Ilenejude Gita Unavailable PROBLEMS Type Condition ICD9-CM Code [id number] Code Onset Dates Condition S tatus W/U Status Risk SNOMED Code Notes Problem Asthma, unspecified, unspecified status 493.90 Active confirmed 33803083 Problem Polycystic ovaries 256.4 Active confirmed 6 9527653 Problem Ureteral calculi 592.1 Active confirmed 310 18972 Problem Bariatric surgery status complicating , third trimester O99.843 Active confirmed Problem Nondependent tobacco use disorder 305.1 Active confirmed 043980178 Problem Bariatric surgery status complicating the puerperium O99.845 Active confirmed Problem Supervision of other normal Z34.80 Active 487116687 Problem Bariatric surgery status complicating , first trimester O99.841 Active confirmed Problem Bariatric surgery status complicating , second trimester O99.842 Active confirmed 938544020 Problem Gastric ulcer K25.9 Active confirmed 425067 006 ALLERGIES Allergen (clinical drug ingredient) Drug/Non Drug Allergy do cumented on EMR Reaction Allergy Type Onset Date Status Keflex Rash Drug Allergy Active Sulfasalazine Sulfa Antibiotics Rash Drug Allergy Ac tive cat itchy eyes,sneezing Non Drug Allergy Active codeine Codeine Sulfate([facility] Code:[address]-24) RASH Drug Al lergy Active Ibuprofen Ibuprofen Gastric ulcers Non Drug Allergy Acti ve ENCOUNTERS from 1989 to 2021-08-21 Encounter Location Date Provider Diagnosis [facility] [address] [facility] [phone] [place] [address] Aug, Gita Clements IMMUNIZATIONS Vaccine Route Administration [...] Once a day for 30 day(s) Not-Taking Tylenol Active Suboxone 8-2 MG 1 film under the tongue and allow to dissolve Sublingual Once a day Not-Taking Glucose Monitor - as directed O24.419 four times daily for 30 Da ys Jun, Active Alcohol Wipes 70 % as directed O24.419 topically four times daily for 30 Days duplicate Jun, Not-Taking Alcohol Wipes 70 % as directed O24.419 topically four times phi y for 30 Days Jun, Active Lancets - as directed O24.419 four times daily for 30 Days duplicate Jun, Not-Taking Carafate 1 GM 1 tablet on an empty stomach Orally Twice a day for 3 0 day(s) Active Test Strips - as directed O24.419 four times daily for 30 Days duplicate Jun, Not-Taking Protonix 20 MG 1 tablet Orally Once a day for 60 day(s) Apr, Active Subutex Active Amitriptyline HCl 100 MG 1 tablet at bedtime Orally Once a day f or 30 day(s) Not-Taking Bactrim DS 800-160 MG 1 tablet Orally Twice a day for 10 day(s) Jan, Not-Taking Percocet 5-325 MG 1 tablet as needed Orally every 6 hrs Not-Taking Lancets - as directed O24.419 four times daily for 30 Days Jun, Active Tamsulosin HCl 0.4 MG 1 capsule 30 minutes after t he same meal each day Orally Once a day for 30 day(s) Not-Frank ing PriLOSEC ? MG 1 capsule Orally bid for 30 day(s) Not-Taking Glucose Monitor - as directed O24.419 four times daily for 30 Da ys duplicate Jun, Not-Taking Test Strips - as directed O24.419 four times daily for 30 Days Jun, Active Vitamin B12 500 MCG 1 tablet Orally Once a day for 30 day(s) Active Lyrica 50 MG 1 capsule Orally bid No t-Taking Belbuca 150 MCG 1 film to the gum Bucally bid mdd2 for 30 days Aug, Not-Taking Calcium 500 MG 1 tablet with meals Orally Twice a day for 30 day(s) Active Albuterol Sulfate HFA 108 (90 Base) MCG/ACT 2 puffs In halation Every 4-6 hours as needed Active Phenazo 200 MG 1 tablet after meals Orally Three times a day for 2 da y(s) Not-Taking Levothyroxine Sodium 75 MCG 1 tablet on an empty stoma ch in the morning Orally Once a day for 30 day(s) Not-Frank ing Multivitamins 1cap Orally daily Acti ve PROCEDURES No Information RESULTS No Results REASON FOR VISIT records MEDICAL (GENERAL) HISTORY Type Description Date Medical [...] PLAN OF TREATMENT Next Appt Details Provider Name:Gita Clements, 2021-08-10 8 02:40:00 PM, [address] [place] [address] , [place], [address], Provider Name:Alma López, 2021-09-04 0 3:20:00 PM, [address] [place] [address] , [place], [address], Provider Name:Jaspreet Banda, 2021-09-24 01:15:00 PM, [address] [place] [address] , [place], [address], Provider Name:Alma López, 2021-11-01 0 9:20:00 AM, [address] [facility], , [place], [address], Insurance Providers Payer Name Payer Address Payer Phone Insured Name Patient Relati onship to Insured Coverage Start Date Coverage End Date MEDICAID [employer] [address] [facility] [address] MARIA E FARMER MEDICARE Part A and B [address] [facility] [address] MARIA E FARMER
--- OUTSIDE RECORDS SUMMARY | 2021-09-11 05:35 | CCD ---
Author Author [facility] Organization [facility] Address Unknown Phone Unavailable Care Team Providers Care Hand Folder Name Role Phone Kelsy Kathleen Unavailable PROBLEMS Type Condition ICD9-CM Code ACZ08-SZ Code Onset Dates Condition S tatus W/U Status Risk SNOMED Code Notes Problem Asthma, unspecified, unspecified status 493.90 Active confirmed 99809466 Problem Polycystic ovaries 256.4 Active confirmed 6 9632131 Problem Ureteral calculi 592.1 Active confirmed 310 76836 Problem Bariatric surgery status complicating , third trimester O99.843 Active confirmed Problem Nondependent tobacco use disorder 305.1 Active confirmed 029944441 Problem Bariatric surgery status complicating the puerperium O99.845 Active confirmed Problem Supervision of other normal Z34.80 Active 721637611 Problem Bariatric surgery status complicating , first trimester O99.841 Active confirmed Problem Bariatric surgery status complicating , second trimester O99.842 Active confirmed 713619289 Problem Gastric ulcer K25.9 Active confirmed 692139 006 ALLERGIES Allergen (clinical drug ingredient) Drug/Non Drug Allergy do cumented on EMR Reaction Allergy Type Onset Date Status Keflex Rash Drug Allergy Active sulfa Rash Non Drug Allergy Active cat itchy eyes,sneezing Non Drug Allergy Active codeine Codeine Sulfate([facility] Code:[address]-79) RASH Drug Al lergy Active Ibuprofen Ibuprofen Gastric ulcers Non Drug Allergy Acti ve ENCOUNTERS from 1989 to 2021-06-27 Encounter Location Date Provider Diagnosis [facility] [address] [place] [address]785[address] [place] [address] Jun, [facility] Bariatric surgery status complicating the puerperium O99.845 IMMUNIZATIONS No Information SOCIAL HISTORY Tobacco Use: Social History Observation [...] Notes Start Da te End Date Status Albuterol Sulfate HFA 108 (90 Base) MCG/ACT 2 puffs In halation Every 4-6 hours as needed Active Amitriptyline HCl 100 MG 1 tablet at bedtime Orally Once a day f or 30 day(s) Not-Taking Multivitamins 1cap Orally daily Acti ve Tylenol Active Phenazo 200 MG 1 tablet after meals Orally Three times a day for 2 da y(s) Not-Taking Lyrica 50 MG 1 capsule Orally bid No t-Taking Subutex Active Cymbalta 60 MG 1 capsule Orally Once a day for 30 day(s) Not-Taking PriLOSEC ? MG 1 capsule Orally bid for 30 day(s) Not-Taking Suboxone 8-2 MG 1 film under the tongue and allow to dissolve Sublingual Once a day Not-Taking Test Strips - as directed O24.419 four times daily for 30 Days Jun, Active Glucose Monitor - as directed O24.419 four times daily for 30 Da ys Jun, Active Calcium 500 MG 1 tablet with meals Orally Twice a day for 30 day(s) Active Lancets - as directed O24.419 four times daily for 30 Days Jun, Active Belbuca 150 MCG 1 film to the gum Bucally bid mdd2 for 30 days Aug, Not-Taking Lancets - as directed O24.419 four times daily for 30 Days Jun, Active Alcohol Wipes 70 % as directed O24.419 topically four times phi y for 30 Days Jun, Active Percocet 5-325 MG 1 tablet as needed Orally every 6 hrs Not-Taking Protonix 20 MG 1 tablet Orally Once a day for 60 day(s) Apr, Active Alcohol Wipes 70 % as directed O24.419 topically four times phi y for 30 Days Jun, Active Vitamin B12 500 MCG 1 tablet Orally Once a day for 30 day(s) Active Glucose Monitor - as directed O24.419 four times daily for 30 Da ys Jun, Active Levothyroxine Sodium 75 MCG 1 tablet on an empty stoma ch in the morning Orally Once a day for 30 day(s) Not-Frank ing Tamsulosin HCl 0.4 MG 1 capsule 30 minutes after t he same meal each day Orally Once a day for 30 day(s) Not-Frank ing Carafate 1 GM 1 tablet on an empty stomach Orally Twice a day for 3 0 day(s) Active Bactrim DS 800-160 MG 1 tablet Orally Twice a day for 10 day(s) Jan, Not-Taking Test Strips - as directed O24.419 four times daily for 30 Days Jun, Active PROCEDURES No Information RESULTS No Results [...] Notes Treatment Notes Treatm ent Clinical Notes Jun, Bariatric surgery status com plicating the puerperium (ICD-10 - O99.845) PLAN OF TREATMENT Medication Medication Name Sig Start Date Stop Date Alcohol Wipes 70 % as directed O24.419 topically four times daily for 30 Days Jun, Test Strips - as directed O24.419 four times daily for 30 Days Jun, Glucose Monitor - as directed O24.419 four times daily for 30 Da ys Jun, Lancets - as directed O24.419 four times daily for 30 Days Jun, Test Strips - as directed O24.419 four times daily for 30 Days Jun, Glucose Monitor - as directed O24.419 four times daily for 30 Da ys Jun, Lancets - as directed O24.419 four times daily for 30 Days Jun, Alcohol Wipes 70 % as directed O24.419 topically four times daily for 30 Days Jun, Next Appt Details Provider Name:Kelsy Chau Lindsayfrancisco, 2021-07-11 09:00:00 AM, [address] [facility], , [place], [address], Provider Name:Gita Clements, 2021-07-11 5 02:00:00 PM, [address] [facility], , [place], [address], Insurance Providers Payer Name Payer Address Payer Phone Insured Name Patient Relati onship to Insured Coverage Start Date Coverage End Date MEDICAID [employer] [address] [facility] [address] MARIA E FARMER MEDICARE Part A and B [address] [facility] [address] MARIA E FARMER
--- OUTSIDE RECORDS SUMMARY | 2021-09-11 05:35 | CCD ---
Author Author [employer] Organization [employer] Address Unknown Phone Unavailable Care Team Providers Care Basket Patcher Name Role Phone Kelsy Kathleen Unavailable PROBLEMS Type Condition ICD9-CM Code [id number] Code Onset Dates Condition S tatus W/U Status Risk SNOMED Code Notes Problem Asthma, unspecified, unspecified status 493.90 Active confirmed 70365274 Problem Polycystic ovaries 256.4 Active confirmed 6 1941909 Problem Ureteral calculi 592.1 Active confirmed 310 97686 Problem Bariatric surgery status complicating , third trimester O99.843 Active confirmed Problem Nondependent tobacco use disorder 305.1 Active confirmed 630323340 Problem Bariatric surgery status complicating the puerperium O99.845 Active confirmed Problem Supervision of other normal Z34.80 Active 601274662 Problem Bariatric surgery status complicating , first trimester O99.841 Active confirmed Problem Bariatric surgery status complicating , second trimester O99.842 Active confirmed 968411980 Problem Gastric ulcer K25.9 Active confirmed 938447 006 ALLERGIES Allergen (clinical drug ingredient) Drug/Non Drug Allergy do cumented on EMR Reaction Allergy Type Onset Date Status Keflex Rash Drug Allergy Active sulfa Rash Non Drug Allergy Active cat itchy eyes,sneezing Non Drug Allergy Active codeine Codeine Sulfate([facility] Code:[address]-09) RASH Drug Al lergy Active Ibuprofen Ibuprofen Gastric ulcers Non Drug Allergy Acti ve ENCOUNTERS from 1989 to 2021-07-12 Encounter Location Date Provider Diagnosis [facility] [address] [place] [address]-785-4[address] [place] [address] Jul, Kelsy Buckleyyulisakiersten Bariatric surgery status complicating , third trimester O99.843 and 30 weeks gestation of Z3A.30 IMMUNIZATIONS No Information SOCIAL HISTORY Tobacco Use: [...] FOR REFERRAL No Information VITAL SIGNS Weight 199 lbs Jul, Weight-kg 90.26 kg Jul, Height 67 in Jul, BMI 31.168 kg/m2 Jul, Blood pressure systolic 128 mm Hg Jul, Blood pressure diastolic 84 mm Hg Jul, MEDICATIONS Medication SIG (Take, Route, Frequency, Duration) Notes Start Da te End Date Status Calcium 500 MG 1 tablet with meals Orally Twice a day for 30 day(s) Active Multivitamins 1cap Orally daily Acti ve Carafate 1 GM 1 tablet on an empty stomach Orally Twice a day for 3 0 day(s) Active Protonix 20 MG 1 tablet Orally Once a day for 60 day(s) Apr, Active Vitamin B12 500 MCG 1 tablet Orally Once a day for 30 day(s) Active Phenazo 200 MG 1 tablet after meals Orally Three times a day for 2 da y(s) Not-Taking Bactrim DS 800-160 MG 1 tablet Orally Twice a day for 10 day(s) Jan, Not-Taking Levothyroxine Sodium 75 MCG 1 tablet on an empty stoma ch in the morning Orally Once a day for 30 day(s) Not-Frank ing Tamsulosin HCl 0.4 MG 1 capsule 30 minutes after t he same meal each day Orally Once a day for 30 day(s) Not-Frank ing PriLOSEC ? MG 1 capsule Orally bid for 30 day(s) Not-Taking Albuterol Sulfate HFA 108 (90 Base) MCG/ACT 2 puffs In halation Every 4-6 hours as needed Active Lancets - as directed O24.419 four times daily for 30 Days duplicate Jun, Not-Taking Percocet 5-325 MG 1 tablet as needed Orally every 6 hrs Not-Taking Subutex Active Lancets - as directed O24.419 four times daily for 30 Days Jun, Active Amitriptyline HCl 100 MG 1 tablet at bedtime Orally Once a day f or 30 day(s) Not-Taking Alcohol Wipes 70 % as directed O24.419 topically four times daily for 30 Days duplicate Jun, Not-Taking Glucose Monitor - as directed O24.419 four times daily for 30 Da ys Jun, Active Alcohol Wipes 70 % as directed O24.419 topically four times phi y for 30 Days Jun, Active Belbuca 150 MCG 1 film to the gum Bucally bid mdd2 for 30 days Aug, Not-Taking Tylenol Active Cymbalta 60 MG 1 capsule Orally Once a day for 30 day(s) Not-Taking Glucose Monitor - as directed O24.419 four times daily for 30 Da ys duplicate Jun, Not-Taking Suboxone 8-2 MG 1 film under the tongue and allow to dissolve Sublingual Once a day Not-Taking Test Strips - as directed O24.419 four times daily for 30 Days duplicate Jun, Not-Taking Lyrica 50 MG 1 capsule Orally bid No t-Taking Test Strips - as directed O24.419 four times daily for 30 Days Jun, Active PROCEDURES No Information RESULTS No Results REASON FOR VISIT 2 WK PN MEDICAL (GENERAL) HISTORY Type Description [...] Notes Treatment Notes Treatm ent Clinical Notes Jul, Bariatric surgery status com plicating , third trimester (ICD-10 - O99.843) Jul, 30 weeks gestation of (ICD-10 - Z3A.30 ) PLAN OF TREATMENT Next Appt Details 2 Weeks Reason:- Routine follow up Provider Name:Gita Clements, 2021-07-11 5 02:00:00 PM, [address] [facility], , [place], [address], Provider Name:Alma Shaila Rene, 2021-07-30 0 1:00:00 PM, [address] [facility], , [place], [address], Follow Up:2 Weeks- Routine follow up Insurance Providers Payer Name Payer Address Payer Phone Insured Name Patient Relati onship to Insured Coverage Start Date Coverage End Date MEDICAID [employer] [address] [facility] [id number] MARIA E FARMER self MEDICARE Part A and B [address] [facility] [id number] MARIA E FARMER self
--- OUTSIDE RECORDS SUMMARY | 2021-09-11 05:35 | CCD ---
Author Author [employer] Organization [employer] Address Unknown Phone Unavailable Care Team Providers Care Dog Raiser Name Role Phone Kelsy Kathleen Unavailable PROBLEMS Type Condition ICD9-CM Code [id number] Code Onset Dates Condition S tatus W/U Status Risk SNOMED Code Notes Problem Asthma, unspecified, unspecified status 493.90 Active confirmed 30172330 Problem Polycystic ovaries 256.4 Active confirmed 6 5124387 Problem Ureteral calculi 592.1 Active confirmed 310 66334 Problem Bariatric surgery status complicating , third trimester O99.843 Active confirmed Problem Nondependent tobacco use disorder 305.1 Active confirmed 544760794 Problem Bariatric surgery status complicating the puerperium O99.845 Active confirmed Problem Supervision of other normal Z34.80 Active 683170755 Problem Bariatric surgery status complicating , first trimester O99.841 Active confirmed Problem Bariatric surgery status complicating , second trimester O99.842 Active confirmed 956758051 Problem Gastric ulcer K25.9 Active confirmed 048793 006 ALLERGIES Allergen (clinical drug ingredient) Drug/Non Drug Allergy do cumented on EMR Reaction Allergy Type Onset Date Status Keflex Rash Drug Allergy Active sulfa Rash Non Drug Allergy Active cat itchy eyes,sneezing Non Drug Allergy Active codeine Codeine Sulfate([facility] Code:[address]-11) RASH Drug Al lergy Active Ibuprofen Ibuprofen Gastric ulcers Non Drug Allergy Acti ve ENCOUNTERS from 1989 to 2021-06-27 Encounter Location Date Provider Diagnosis [facility] [address] [place] [phone] [place] [address] Jun, Kelsy Kathleen 28 weeks gestatio n of Z3A.28 and Bariatric surgery status complicating , third trimester O99.843 IMMUNIZATIONS No Information SOCIAL HISTORY Tobacco Use: [...] FOR REFERRAL No Information VITAL SIGNS Weight 195.4 lbs Jun, Weight-kg 88.63 kg Jun, Height 67 in Jun, BMI 30.604 kg/m2 Jun, Blood pressure systolic 110 mm Hg Jun, Blood pressure diastolic 82 mm Hg Jun, MEDICATIONS Medication SIG (Take, Route, Frequency, Duration) [...] Information RESULTS No Results REASON FOR VISIT 4 wk pn MEDICAL (GENERAL) HISTORY Type Description Date Medical [...] Treatment Notes Treatm ent Clinical Notes Jun, 28 weeks gestation of (ICD-10 - Z3A.28 ) Jun, Bariatric surgery status com plicating , third trimester (ICD-10 - O99.843) PLAN OF TREATMENT Medication Medication Name Sig [...] four times daily for 30 Days Jun, Treatment Notes Test Name Order Date CBC - Complete Blood Count 2021-06-26 Type and Screen (D Rh Antibody Screen) 2021-06-26 AB SCREEN (INDIRECT GURU)GEL Antibody Screen 2021-06 CHLAMYDIA & GC DNA AMPLIFICAT 2021-06-26 Next Appt Details 2 Weeks Reason:- Routine follow up Provider Name:Kelsy Kathleen, 2021-07-11 09:00:00 AM, [address] [place] [address], , [place], [address], Provider Name:Gita Clements, 2021-07-11 5 02:00:00 PM, [address] [place] [address], , [place], [address], Follow Up:2 Weeks- Routine follow up Insurance Providers Payer Name Payer Address Payer Phone Insured Name Patient Relati onship to Insured Coverage Start Date Coverage End Date MEDICARE Part A and B [address] [facility] [phone] [phone] MARIA E FARMER MEDICAID [employer] [address] [place] [address] MARIA E FARMER
--- OUTSIDE RECORDS SUMMARY | 2021-09-11 05:35 | CCD ---
Author Author [facility] Organization [facility] Address Unknown Phone Unavailable Care Team Providers Care Screen Roller Name Role Phone Alma López Unavailable PROBLEMS Type Condition ICD9-CM Code SKC40-KG Code Onset Dates Condition S tatus W/U Status Risk SNOMED Code Notes Problem Asthma, unspecified, unspecified status 493.90 Active confirmed 71191363 Problem Polycystic ovaries 256.4 Active confirmed 6 8983253 Problem Ureteral calculi 592.1 Active confirmed 310 48589 Problem Bariatric surgery status complicating , third trimester O99.843 Active confirmed Problem Nondependent tobacco use disorder 305.1 Active confirmed 072222903 Problem Bariatric surgery status complicating the puerperium O99.845 Active confirmed Problem Supervision of other normal Z34.80 Active 872267529 Problem Bariatric surgery status complicating , first trimester O99.841 Active confirmed Problem Bariatric surgery status complicating , second trimester O99.842 Active confirmed 198545019 Problem Gastric ulcer K25.9 Active confirmed 749398 006 ALLERGIES Allergen (clinical drug ingredient) Drug/Non Drug Allergy do cumented on EMR Reaction Allergy Type Onset Date Status Keflex Rash Drug Allergy Active sulfa Rash Non Drug Allergy Active cat itchy eyes,sneezing Non Drug Allergy Active codeine Codeine Sulfate([facility] Code:[address]-18) RASH Drug Al lergy Active Ibuprofen Ibuprofen Gastric ulcers Non Drug Allergy Acti ve ENCOUNTERS from 1989 to 2021-08-13 Encounter Location Date Provider Diagnosis [facility] [address] [facility] [phone] [place] [address] Jul, Alma López Encounter for superv ision of normal first , third trimester Z34.03 ; 33 weeks gestation of Z3A.33 and Encounter for immunization Z23 IMMUNIZATIONS Vaccine Route Administration Date Status TDAP [...] FOR REFERRAL No Information VITAL SIGNS Weight 204.8 lbs Jul, Weight-kg 92.9 kg Jul, Height 67 in Jul, BMI 32.076 kg/m2 Jul, Blood pressure systolic 118 mm Hg Jul, Blood pressure diastolic 74 mm Hg Jul, MEDICATIONS Medication SIG (Take, Route, Frequency, Duration) Notes Start Da te End Date Status PriLOSEC ? MG 1 capsule Orally bid for 30 day(s) Not-Taking Glucose Monitor - as directed O24.419 four times daily for 30 Da ys duplicate Jun, Not-Taking Levothyroxine Sodium 75 MCG 1 tablet on an empty stoma ch in the morning Orally Once a day for 30 day(s) Not-Frank ing Lyrica 50 MG 1 capsule Orally bid No t-Taking Lancets - as directed O24.419 four times daily for 30 Days Jun, Active Alcohol Wipes 70 % as directed O24.419 topically four times daily for 30 Days duplicate Jun, Not-Taking Test Strips - as directed O24.419 four times daily for 30 Days Jun, Active Test Strips - as directed O24.419 four times daily for 30 Days duplicate Jun, Not-Taking Glucose Monitor - as directed O24.419 four times daily for 30 Da ys Jun, Active Lancets - as directed O24.419 four times daily for 30 Days duplicate Jun, Not-Taking Calcium 500 MG 1 tablet with meals Orally Twice a day for 30 day(s) Active Tamsulosin HCl 0.4 MG 1 capsule 30 minutes after t he same meal each day Orally Once a day for 30 day(s) Not-Frank ing Amitriptyline HCl 100 MG 1 tablet at bedtime Orally Once a day f or 30 day(s) Not-Taking Phenazo 200 MG 1 tablet after meals Orally Three times a day for 2 da y(s) Not-Taking Alcohol Wipes 70 % as directed O24.419 topically four times phi y for 30 Days Jun, Active Tylenol Active Bactrim DS 800-160 MG 1 tablet Orally Twice a day for 10 day(s) Jan, Not-Taking Protonix 20 MG 1 tablet Orally Once a day for 60 day(s) Apr, Active Suboxone 8-2 MG 1 film under the tongue and allow to dissolve Sublingual Once a day Not-Taking Carafate 1 GM 1 tablet on an empty stomach Orally Twice a day for 3 0 day(s) Active Multivitamins 1cap Orally daily Acti ve Vitamin B12 500 MCG 1 tablet Orally Once a day for 30 day(s) Active Cymbalta 60 MG 1 capsule Orally Once a day for 30 day(s) Not-Taking Belbuca 150 MCG 1 film to the gum Bucally bid mdd2 for 30 days Aug, Not-Taking Percocet 5-325 MG 1 tablet as needed Orally every 6 hrs Not-Taking Albuterol Sulfate HFA 108 (90 Base) MCG/ACT 2 puffs In halation Every 4-6 hours as needed Active Subutex Active PROCEDURES from 1989 to 2021-08-13 Procedure Date Ordered Result Body Site Imm: Boostrix 0.5mL IM TDAP 2021-07-30 N/A RESULTS No Results REASON FOR VISIT 2 [...] Treatment Notes Treatm ent Clinical Notes Jul, Encounter for supervision of normal first , third trimester (ICD-10 - Z34.03) Jul, 33 weeks gestation of (ICD-10 - Z3A.33 ) Jul, Encounter for immunization (ICD-10 - Z23) PLAN OF TREATMENT Next Appt Details 2 Weeks Reason:pn Provider Name:Gita Clements, 5 02:00:00 PM, [address] [place] [address], , [place], [address], Provider Name:Alma López, 2021-09-04 0 3:20:00 PM, [address] [place] [address], , [place], [address], Provider Name:Jaspreet Banda, 2021-09-24 01:15:00 PM, [address] [place] [address], , [place], [address], Provider Name:Alma López, 2021-11-01 0 9:20:00 AM, [address] [place] [address], , [place], [address], Follow Up:2 Weekspn Insurance Providers Payer Name Payer Address Payer Phone Insured Name Patient Relati onship to Insured Coverage Start Date Coverage End Date MEDICARE Part A and B [address] [facility] [address] MARIA E FARMER self MEDICAID [employer] [address] [facility] [id number] [phone] MARIA E FARMER
--- OUTSIDE RECORDS SUMMARY | 2021-09-11 05:35 | CCD ---
Author Author [employer] Organization [employer] Address Unknown Phone Unavailable Care Team Providers Care Storehouse Clerk Name Role Phone Kelsy Kathleen Unavailable PROBLEMS Type Condition ICD9-CM Code UIH38-DX Code Onset Dates Condition S tatus W/U Status Risk SNOMED Code Notes Problem Asthma, unspecified, unspecified status 493.90 Active confirmed 16762262 Problem Polycystic ovaries 256.4 Active confirmed 6 0920797 Problem Ureteral calculi 592.1 Active confirmed 310 15331 Problem Bariatric surgery status complicating , third trimester O99.843 Active confirmed Problem Nondependent tobacco use disorder 305.1 Active confirmed 913327231 Problem Bariatric surgery status complicating the puerperium O99.845 Active confirmed Problem Supervision of other normal Z34.80 Active 677164004 Problem Bariatric surgery status complicating , first trimester O99.841 Active confirmed Problem Bariatric surgery status complicating , second trimester O99.842 Active confirmed 828766231 Problem Gastric ulcer K25.9 Active confirmed 710273 006 ALLERGIES Allergen (clinical drug ingredient) Drug/Non Drug Allergy do cumented on EMR Reaction Allergy Type Onset Date Status Keflex Rash Drug Allergy Active sulfa Rash Non Drug Allergy Active cat itchy eyes,sneezing Non Drug Allergy Active codeine Codeine Sulfate([facility] Code:[address]-17) RASH Drug Al lergy Active Ibuprofen Ibuprofen Gastric ulcers Non Drug Allergy Acti ve ENCOUNTERS from 1989 to 2021-07-06 Encounter Location Date Provider Diagnosis [facility] [address] [place] [phone] [place] [address] Jun, Kelsy [facility] No Information SOCIAL HISTORY Tobacco Use: Social [...] Information RESULTS No Results REASON FOR VISIT RX MEDICAL (GENERAL) HISTORY Type Description Date Medical [...] Information ASSESSMENTS No Information PLAN OF TREATMENT Medication Medication Name Sig [...] Days Jun, Next Appt Details Provider Name:Kelsy Kathleen, 2021-07-11 09:00:00 AM, [address] [facility], , [place], [address], Provider Name:Gita Clements, 2021-07-11 5 02:00:00 PM, [address] [facility], , [place], [address], Insurance Providers Payer Name Payer Address Payer Phone Insured Name Patient Relati onship to Insured Coverage Start Date Coverage End Date MEDICARE Part A and B [address] [facility] [phone] MARIA E FARMER self MEDICAID [employer] [address] [facility] [address] MARIA E FARMER self
--- OUTSIDE RECORDS SUMMARY | 2021-09-11 05:35 | CCD | Continuity of Care Document ---
Author Author [employer] Organization Unknown Address [address] [place] [address] Phone [phone] Care Team Providers Care Direct Mail Clerk Name Role Phone Lucía Almeida MD [facility] [phone] Problems Description No Information Available Social History Type Date Description Comments Sex Unknown Allergies, Adverse Reactions, Alerts Description No Information Available Medications Description No Information Available Immunizations Description No Information Available Vital Signs Description No Information Available Results Description No Information Available Procedures Description No Information Available Medical Devices Description No Information Available Encounters Description No Information Available Assessments Date Code Description Provider 06/15/2021 Z20.828 Contact with and (ledezma spected) exposure to other viral communicable diseases MONICA Badillo Plan of Treatment No Information Available Functional Status Description No Information Available Mental Status Description No Information Available Referrals Description No Information Available
--- OUTSIDE RECORDS SUMMARY | 2021-09-11 05:35 | CCD ---
Author Author [facility] Organization [facility] Address Unknown Phone Unavailable Care Team Providers Care Aesthetics Instructor Name Role Phone Sophia Dolan II RPA-C Unavailable Unavailable Sophia Dolan II RPA-C Unavailable Unavailable Sophia Dolan II RPA-C Unavailable Unavailable Magdaleno II, C Tyson RPA-C Unavailable Unavailable Magdaleno II, C Tyson RPA-C Unavailable Unavailable Magdaleno II, C Tyson RPA-C Unavailable Unavailable Magdaleno II, C Tyson RPA-C Unavailable Unavailable Magdaleno II, C Tyson RPA-C Unavailable Unavailable Magdaleno II, C Tyson RPA-C Unavailable Unavailable Magdaleno II, C Tyson RPA-C Unavailable Unavailable Magdaleno II, C Tyson RPA-C Unavailable Unavailable Magdaleno II, C Tyson RPA-C Unavailable Unavailable Magdaleno II, C Tyson RPA-C Unavailable Unavailable Magdaleno II, C Tyson RPA-C Unavailable Unavailable Magdaleno II, C Tyson RPA-C Unavailable Unavailable Magdaleno II, C Tyson RPA-C Unavailable Unavailable Magdaleno II, C Tyson RPA-C Unavailable Unavailable Magdaleno II, C Tyson RPA-C Unavailable Unavailable Magdaleno II, C Tyson RPA-C Unavailable Unavailable Magdaleno II, C Tyson RPA-C Unavailable Unavailable Magdaleno II, C Tyson RPA-C Unavailable Unavailable Magdaleno II, C Tyson RPA-C Unavailable Unavailable Magdaleno II, C Tyson RPA-C Unavailable Unavailable Magdaleno II, C Tyson RPA-C Unavailable Unavailable Magdaleno II, C Tyson RPA-C Unavailable Unavailable Magdaleno II, C Tyson RPA-C Unavailable Unavailable Magdaleno II, C Tyson RPA-C Unavailable Unavailable Magdaleno II, C Tyson RPA-C Unavailable Unavailable Magdaleno II, C Tyson RPA-C Unavailable Unavailable Magdaleno II, C Tyson RPA-C Unavailable Unavailable Magdaleno II, C Tyson RPA-C Unavailable Unavailable Magdaleno II, C Tyson RPA-C Unavailable Unavailable Magdaleno II, C Tyson RPA-C Unavailable Unavailable Magdaleno II, C Tyson RPA-C Unavailable Unavailable Magdaleno II, C Tyson RPA-C Unavailable Unavailable Magdaleno II, C Tyson RPA-C Unavailable Unavailable Magdaleno II, C Tyson RPA-C Unavailable Unavailable Magdaleno II, C Tyson RPA-C Unavailable Unavailable Gulshan Yepez PA-C Unavailable Unavailable Gulshan Yepez PA-C Unavailable Unavailable Gulshan Yepez PA-C Unavailable Unavailable Gulshan Yepez PA-C Unavailable Unavailable Gulshan Yepez PA-C Unavailable Unavailable Gulshan Yepez PA-C Unavailable Unavailable Gulshan Yepez PA-C Unavailable Unavailable Gulshan Yepez PA-C Unavailable Unavailable Gulshan Yepez PA-C Unavailable Unavailable Gulshan Yepez PA-C Unavailable Unavailable Yepez, M Christopher PA-C Unavailable Unavailable Yepez, M Christopher PA-C Unavailable Unavailable Yepez, M Christopher PA-C Unavailable Unavailable Yepez, M Christopher PA-C Unavailable Unavailable Yepez, M Christopher PA-C Unavailable Unavailable Yepez, M Christopher PA-C Unavailable Unavailable Yepez, M Christopher PA-C Unavailable Unavailable Yepez, M Christopher PA-C Unavailable Unavailable Yepez, M Christopher PA-C Unavailable Unavailable Yepez, M Christopher PA-C Unavailable Unavailable Yepez, M Christopher PA-C Unavailable Unavailable Yepez, M Christopher PA-C Unavailable Unavailable Yepez, M Christopher PA-C Unavailable Unavailable Yepez, M Christopher PA-C Unavailable Unavailable Yepez, M Christopher PA-C Unavailable Unavailable Yepez, M Christopher PA-C Unavailable Unavailable Amaro, M Robert PA Unavailable Unavailable Amaro, M Robert PA Unavailable Unavailable Amaro, M Robert PA Unavailable Unavailable Amaro, M Robert PA Unavailable Unavailable Amaro, M Robert PA Unavailable Unavailable Amaro, M Robert PA Unavailable Unavailable Amaro, M Robert PA Unavailable Unavailable Amaro, M Robert PA Unavailable Unavailable Amaro, M Robert PA Unavailable Unavailable Amaro, M Robert PA Unavailable Unavailable Amaro, M Robert PA Unavailable Unavailable Amaro, M Robert PA Unavailable Unavailable Amaro, M Robert PA Unavailable Unavailable Amaro, M Robert PA Unavailable Unavailable Amaro, M Robert PA Unavailable Unavailable Amaro, M Robert PA Unavailable Unavailable Amaro, M Robert PA Unavailable Unavailable Amaro, M Robert PA Unavailable Unavailable Amaro, M Robert PA Unavailable Unavailable Amaro, M Robert PA Unavailable Unavailable Amaro, M Robert PA Unavailable Unavailable Amaro, M Robert PA Unavailable Unavailable Amaro, M Robert PA Unavailable Unavailable Amaro, M Robert PA Unavailable Unavailable Amaro, M Robert PA Unavailable Unavailable Amaro, M Robert PA Unavailable Unavailable Amaro, M Robert PA Unavailable Unavailable Amaro, M Robert PA Unavailable Unavailable Amaro, M Robert PA Unavailable Unavailable Amaro, M Robert PA Unavailable Unavailable Amaro, M Robert PA Unavailable Unavailable Amaro, M Robert PA Unavailable Unavailable Amaro, M Robert PA Unavailable Unavailable Amaro, M Robert PA Unavailable Unavailable Amaro, M Robert PA Unavailable Unavailable Amaro, M Robert PA Unavailable Unavailable Amaro, M Robert PA Unavailable Unavailable Amaro, M Robert PA Unavailable Unavailable Amaro, M Robert PA Unavailable Unavailable Amaro, M Robert PA Unavailable Unavailable Amaro, M Robert PA Unavailable Unavailable Amaro, M Robert PA Unavailable Unavailable Amaro, Gulshan Jones PA Unavailable Unavailable Gulshan Amaro PA Unavailable Unavailable Amaro, Gulshan Jones PA Unavailable Unavailable Amaro, Gulshan StoneRobert PA Unavailable Unavailable Amaro, Gulshan StoneRobert PA Unavailable Unavailable Amaro, Gulshan Jones PA Unavailable Unavailable Amaro, Gulshan Jones PA Unavailable Unavailable Re-disclosure Warning The records that you are about to access may contain information from federally-assisted alcohol or drug abuse programs. If such information is present, then the following federally mandated warning applies: This information has been disclosed to you from records protected by federal confidentiality rules (42 CFR part 2). The federal rules prohibit you from making any further disclosure of this information unless further disclosure is expressly permitted by the written consent of the person to whom it pertains or as otherwise permitted by 42 CFR part 2. A general authorization for the release of medical or other information is NOT sufficient for this purpose. The Federal rules restrict any use of the information to criminally investigate or prosecute any alcohol or drug abuse patient.The records that you are about to access may contain highly sensitive health information, the redisclosure of which is protected by Article 27-F of the [place] [facility] Public Health law. If you continue you may have access to information: Regarding HIV / AIDS; Provided by facilities licensed or operated by the [facility] Office of Mental Health; or Provided by the [facility] Office for People With Developmental Disabilities. If such information is present, then the following [facility] mandated warning applies: This information has been disclosed to you from confidential records which are protected by state law. State law prohibits you from making any further disclosure of this information without the specific written consent of the person to whom it pertains, or as otherwise permitted by law. Any unauthorized further disclosure in violation of state law may result in a fine or shelter sentence or both. A general authorization for the release of medical or other information is NOT sufficient authorization for further disc losure. Family History Family Member Name Family Member Gender Family Member Status Date o f Status Description Data Source(s) Unknown Female Problem MEDENT (MedRebethel Ambriz MD ) Encounters Encounter Providers Location Date Indications Data Source(s ) ( ESTOB) enter Est OB [address] [place] [address] 09/04/2021 12:00:00 AM EDT eCW1 ([facility]) Unknown [address] [facility] [place] [address] 09/03/2021 12:00:00 AM EDT eCW1 ([facility]) (WC ESTOB) [facility] [address] [place] [address] 08/27/2021 12:00:00 AM EDT eCW1 ([facility]) [place] [address] [facility] [place] [address] 08/21/2021 12:00:00 AM EDT eCW1 ([facility]) [place] [address] [facility] [place] [address] 08/20/2021 12:00:00 AM EDT eCW1 ([facility]) (WC ESTOB) [facility] [address] [place] [address] 08/14/2021 12:00:00 AM EDT eCW1 ([facility]) (WC ESTOB) [facility] [address] [place] [address] 07/30/2021 12:00:00 AM EDT eCW1 ([facility]) (WC ESTOB) [facility] [address] [place] [address] 07/11/2021 12:00:00 AM EDT eCW1 ([facility]) [place] [address] [facility] [place] [address] 06/29/2021 12:00:00 AM EDT eCW1 ([facility]) [place] [address] [facility] [place] [address] 06/27/2021 12:00:00 AM EDT eCW1 ([facility]) (WC ESTOB) [facility] [address] [place] [address] 06/26/2021 12:00:00 AM EDT eCW1 ([facility]) Recurring Patient Attender: Tyson Dolan IIReferrer: Robert ANDERSON 06/06/2021 11:16:48 AM EDT [facility] Unknown [address] [facility] [place] [address] 06/06/2021 12:00:00 AM EDT eCW1 ([facility]) [place] [address] [facility] [place] [address] 05/08/2021 12:00:00 AM EDT eCW1 ([facility]) ( ESTOB) [facility] Est OB [address] [place] [address] 04/25/2021 12:00:00 AM EDT eCW1 ([facility]) [place] [address] [facility] [place] [address] 03/20/2021 12:00:00 AM EDT eCW1 ([facility]) ( ESTOB) [facility] Est OB [address] [place] [address] 03/19/2021 12:00:00 AM EDT eCW1 ([facility]) Outpatient Attender: Jozef Yepez PA-C 02/22/2021 05:25:56 PM EDT - 02/22/2021 06:31:16 PM EDT [facility] ([facility]) Unknown [address] [facility] [place] [address] 02/19/2021 12:00:00 AM EDT eCW1 ([facility]) ( NEWOB) [facility] OB Visit [address] [place] [address] 02/19/2021 12:00:00 AM EDT eCW1 ([facility]) [place] [address] [facility] [place] [address] 01/17/2021 12:00:00 AM EST eCW1 ([facility]) [place] [address] [facility] [place] [address] 01/16/2021 12:00:00 AM EST eCW1 ([facility]) [place] [address] [facility] [place] [address] 01/08/2021 12:00:00 AM EST eCW1 ([facility]) [place] [address] [facility] [place] [address] 11/14/2020 12:00:00 AM EST eCW1 ([facility]) Outpatient [address] [facility] [place] [address] 10/12/2020 12:00:00 AM EST eCW1 ([facility]) [place] [address] [facility] [place] [address] 09/28/2020 12:00:00 AM EST eCW1 ([facility]) [place] [address] [facility] [place] [address] 09/01/2020 12:00:00 AM EDT eCW1 ([facility]) Immunizations Vaccine Date Status Description Data Source(s) Tdap 07/30/2021 02:38:00 PM EDT completed e CW1 ([facility]) Tdap 07/30/2021 02:38:00 PM EDT completed e CW1 ([facility]) Tdap 07/30/2021 02:38:00 PM EDT completed e CW1 ([facility]) Tdap 07/30/2021 02:38:00 PM EDT completed e CW1 ([facility]) Tdap 07/30/2021 02:38:00 PM EDT completed e CW1 ([facility]) Tdap 07/30/2021 02:38:00 PM EDT completed e CW1 ([facility]) Tdap 07/30/2021 02:38:00 PM EDT completed e CW1 ([facility]) Medications Medication Brand Name Start Date Product Form Dose Route Admi nistrative Instructions Pharmacy Instructions Status Indications Reaction Description Data Source(s) Test Strips - UNK 06/27/2021 12:00:00 AM EDT suspended Test Strips - eCW1 ([facility]) Lancets - Lancets - 06/27/2021 12:00:00 AM EDT suspended Lancets - eCW1 ([facility]) Test Strips - UNK 06/27/2021 12:00:00 AM EDT suspended Test Strips - eCW1 ([facility]) Glucose Monitor - UNK 06/27/2021 12:00:00 AM EDT suspended Glucose Monitor - eCW1 ([facility]) Test Strips - UNK 06/27/2021 12:00:00 AM EDT suspended Test Strips - eCW1 ([facility]) Lancets - Lancets - 06/27/2021 12:00:00 AM EDT suspended Lancets - eCW1 ([facility]) Glucose Monitor - UNK 06/27/2021 12:00:00 AM EDT suspended Glucose Monitor - eCW1 ([facility]) Lancets - Lancets - 06/27/2021 12:00:00 AM EDT suspended Lancets - eCW1 ([facility]) Glucose Monitor - UNK 06/27/2021 12:00:00 AM EDT suspended Glucose Monitor - eCW1 ([facility]) Glucose Monitor - UNK 06/27/2021 12:00:00 AM EDT suspended Glucose Monitor - eCW1 ([facility]) Alcohol Wipes 70 % UNK 06/27/2021 12:00:00 AM EDT suspended Alcohol Wipes 70 % eCW1 ([facility]) Glucose Monitor - UNK 06/27/2021 12:00:00 AM EDT active Glucose Monitor - eCW1 ([facility]) Glucose Monitor - UNK 06/27/2021 12:00:00 AM EDT suspended Glucose Monitor - eCW1 ([facility]) Alcohol Wipes 70 % UNK 06/27/2021 12:00:00 AM EDT active Alcohol Wipes 70 % eCW1 ([facility]) Lancets - Lancets - 06/27/2021 12:00:00 AM EDT act rafael Lancets - eCW1 ([facility]) Test Strips - UNK 06/27/2021 12:00:00 AM EDT suspended Test Strips - eCW1 ([facility]) Lancets - Lancets - 06/27/2021 12:00:00 AM EDT suspended Lancets - eCW1 ([facility]) Alcohol Wipes 70 % UNK 06/27/2021 12:00:00 AM EDT suspended Alcohol Wipes 70 % eCW1 ([facility]) Glucose Monitor - UNK 06/27/2021 12:00:00 AM EDT suspended Glucose Monitor - eCW1 ([facility]) Lancets - Lancets - 06/27/2021 12:00:00 AM EDT suspended Lancets - eCW1 ([facility]) Alcohol Wipes 70 % UNK 06/27/2021 12:00:00 AM EDT active Alcohol Wipes 70 % eCW1 ([facility]) Alcohol Wipes 70 % UNK 06/27/2021 12:00:00 AM EDT suspended Alcohol Wipes 70 % eCW1 ([facility]) Test Strips - UNK 06/27/2021 12:00:00 AM EDT acti ve Test Strips - eCW1 ([facility]) Test Strips - UNK 06/27/2021 12:00:00 AM EDT suspended Test Strips - eCW1 ([facility]) Alcohol Wipes 70 % UNK 06/27/2021 12:00:00 AM EDT active Alcohol Wipes 70 % eCW1 ([facility]) Glucose Monitor - UNK 06/27/2021 12:00:00 AM EDT active Glucose Monitor - eCW1 ([facility]) Test Strips - UNK 06/27/2021 12:00:00 AM EDT acti ve Test Strips - eCW1 ([facility]) Glucose Monitor - UNK 06/27/2021 12:00:00 AM EDT suspended Glucose Monitor - eCW1 ([facility]) Lancets - Lancets - 06/27/2021 12:00:00 AM EDT suspended Lancets - eCW1 ([facility]) Lancets - Lancets - 06/27/2021 12:00:00 AM EDT act rafael Lancets - eCW1 ([facility]) Lancets - Lancets - 06/27/2021 12:00:00 AM EDT suspended Lancets - eCW1 ([facility]) Test Strips - UNK 06/27/2021 12:00:00 AM EDT suspended Test Strips - eCW1 ([facility]) Alcohol Wipes 70 % UNK 06/27/2021 12:00:00 AM EDT suspended Alcohol Wipes 70 % eCW1 ([facility]) Glucose Monitor - UNK 06/27/2021 12:00:00 AM EDT active Glucose Monitor - eCW1 ([facility]) Test Strips - UNK 06/27/2021 12:00:00 AM EDT suspended Test Strips - eCW1 ([facility]) Test Strips - UNK 06/27/2021 12:00:00 AM EDT acti ve Test Strips - eCW1 ([facility]) Lancets - Lancets - 06/27/2021 12:00:00 AM EDT act rafael Lancets - eCW1 ([facility]) Lancets - Lancets - 06/27/2021 12:00:00 AM EDT suspended Lancets - eCW1 ([facility]) Glucose Monitor - UNK 06/27/2021 12:00:00 AM EDT suspended Glucose Monitor - eCW1 ([facility]) Test Strips - UNK 06/27/2021 12:00:00 AM EDT suspended Test Strips - eCW1 ([facility]) Alcohol Wipes 70 % UNK 06/27/2021 12:00:00 AM EDT suspended Alcohol Wipes 70 % eCW1 ([facility]) Alcohol Wipes 70 % UNK 06/27/2021 12:00:00 AM EDT suspended Alcohol Wipes 70 % eCW1 ([facility]) Alcohol Wipes 70 % UNK 06/27/2021 12:00:00 AM EDT suspended Alcohol Wipes 70 % eCW1 ([facility]) Alcohol Wipes 70 % UNK 06/27/2021 12:00:00 AM EDT suspended Alcohol Wipes 70 % eCW1 ([facility]) Test Strips - UNK 06/26/2021 12:00:00 AM EDT acti ve Test Strips - eCW1 ([facility]) Alcohol Wipes 70 % UNK 06/26/2021 12:00:00 AM EDT active Alcohol Wipes 70 % eCW1 ([facility]) Lancets - Lancets - 06/26/2021 12:00:00 AM EDT act rafael Lancets - eCW1 ([facility]) Test Strips - UNK 06/26/2021 12:00:00 AM EDT acti ve Test Strips - eCW1 ([facility]) Alcohol Wipes 70 % UNK 06/26/2021 12:00:00 AM EDT active Alcohol Wipes 70 % eCW1 ([facility]) Glucose Monitor - UNK 06/26/2021 12:00:00 AM EDT active Glucose Monitor - eCW1 ([facility]) Lancets - Lancets - 06/26/2021 12:00:00 AM EDT act rafael Lancets - eCW1 ([facility]) Lancets - Lancets - 06/26/2021 12:00:00 AM EDT act rafael Lancets - eCW1 ([facility]) Alcohol Wipes 70 % UNK 06/26/2021 12:00:00 AM EDT active Alcohol Wipes 70 % eCW1 ([facility]) Alcohol Wipes 70 % UNK 06/26/2021 12:00:00 AM EDT active Alcohol Wipes 70 % eCW1 ([facility]) Glucose Monitor - UNK 06/26/2021 12:00:00 AM EDT active Glucose Monitor - eCW1 ([facility]) Alcohol Wipes 70 % UNK 06/26/2021 12:00:00 AM EDT active Alcohol Wipes 70 % eCW1 ([facility]) Test Strips - UNK 06/26/2021 12:00:00 AM EDT acti ve Test Strips - eCW1 ([facility]) Glucose Monitor - UNK 06/26/2021 12:00:00 AM EDT active Glucose Monitor - eCW1 ([facility]) Glucose Monitor - UNK 06/26/2021 12:00:00 AM EDT active Glucose Monitor - eCW1 ([facility]) Lancets - Lancets - 06/26/2021 12:00:00 AM EDT act rafael Lancets - eCW1 ([facility]) Glucose Monitor - UNK 06/26/2021 12:00:00 AM EDT active Glucose Monitor - eCW1 ([facility]) Lancets - Lancets - 06/26/2021 12:00:00 AM EDT suspended Lancets - eCW1 ([facility]) Glucose Monitor - UNK 06/26/2021 12:00:00 AM EDT suspended Glucose Monitor - eCW1 ([facility]) Lancets - Lancets - 06/26/2021 12:00:00 AM EDT act rafael Lancets - eCW1 ([facility]) Alcohol Wipes 70 % UNK 06/26/2021 12:00:00 AM EDT active Alcohol Wipes 70 % eCW1 ([facility]) Alcohol Wipes 70 % UNK 06/26/2021 12:00:00 AM EDT active Alcohol Wipes 70 % eCW1 ([facility]) Test Strips - UNK 06/26/2021 12:00:00 AM EDT acti ve Test Strips - eCW1 ([facility]) Lancets - Lancets - 06/26/2021 12:00:00 AM EDT act rafael Lancets - eCW1 ([facility]) Alcohol Wipes 70 % UNK 06/26/2021 12:00:00 AM EDT active Alcohol Wipes 70 % eCW1 ([facility]) Lancets - Lancets - 06/26/2021 12:00:00 AM EDT act rafael Lancets - eCW1 ([facility]) Alcohol Wipes 70 % UNK 06/26/2021 12:00:00 AM EDT active Alcohol Wipes 70 % eCW1 ([facility]) Test Strips - UNK 06/26/2021 12:00:00 AM EDT acti ve Test Strips - eCW1 ([facility]) Lancets - Lancets - 06/26/2021 12:00:00 AM EDT act rafael Lancets - eCW1 ([facility]) Test Strips - UNK 06/26/2021 12:00:00 AM EDT acti ve Test Strips - eCW1 ([facility]) Glucose Monitor - UNK 06/26/2021 12:00:00 AM EDT active Glucose Monitor - eCW1 ([facility]) Alcohol Wipes 70 % UNK 06/26/2021 12:00:00 AM EDT active Alcohol Wipes 70 % eCW1 ([facility]) Glucose Monitor - UNK 06/26/2021 12:00:00 AM EDT active Glucose Monitor - eCW1 ([facility]) Test Strips - UNK 06/26/2021 12:00:00 AM EDT acti ve Test Strips - eCW1 ([facility]) Lancets - Lancets - 06/26/2021 12:00:00 AM EDT act rafael Lancets - eCW1 ([facility]) Glucose Monitor - UNK 06/26/2021 12:00:00 AM EDT active Glucose Monitor - eCW1 ([facility]) Test Strips - UNK 06/26/2021 12:00:00 AM EDT acti ve Test Strips - eCW1 ([facility]) Glucose Monitor - UNK 06/26/2021 12:00:00 AM EDT active Glucose Monitor - eCW1 ([facility]) Glucose Monitor - UNK 06/26/2021 12:00:00 AM EDT active Glucose Monitor - eCW1 ([facility]) Test Strips - UNK 06/26/2021 12:00:00 AM EDT acti ve Test Strips - eCW1 ([facility]) Test Strips - UNK 06/26/2021 12:00:00 AM EDT acti ve Test Strips - eCW1 ([facility]) Alcohol Wipes 70 % UNK 06/26/2021 12:00:00 AM EDT active Alcohol Wipes 70 % eCW1 ([facility]) Test Strips - UNK 06/26/2021 12:00:00 AM EDT suspended Test Strips - eCW1 ([facility]) Lancets - Lancets - 06/26/2021 12:00:00 AM EDT act rafael Lancets - eCW1 ([facility]) pantoprazole 20 MG Delayed Release Oral Tablet [Proton ix] Protonix 20 MG Protonix 20 MG 05/08/2021 12:00:00 AM EDT 1.0 {tablet} active Protonix 20 MG eCW1 ([facility]) pantoprazole 20 MG Delayed Release Oral Tablet [Proton ix] Protonix 20 MG Protonix 20 MG 05/08/2021 12:00:00 AM EDT 1.0 {tablet} active Protonix 20 MG eCW1 ([facility]) pantoprazole 20 MG Delayed Release Oral Tablet [Proton ix] Protonix 20 MG Protonix 20 MG 05/08/2021 12:00:00 AM EDT 1.0 {tablet} active Protonix 20 MG eCW1 ([facility]) pantoprazole 20 MG Delayed Release Oral Tablet [Proton ix] Protonix 20 MG Protonix 20 MG 05/08/2021 12:00:00 AM EDT 1.0 {tablet} active Protonix 20 MG eCW1 ([facility]) pantoprazole 20 MG Delayed Release Oral Tablet [Proton ix] Protonix 20 MG Protonix 20 MG 05/08/2021 12:00:00 AM EDT 1.0 {tablet} active Protonix 20 MG eCW1 ([facility]) pantoprazole 20 MG Delayed Release Oral Tablet [Proton ix] Protonix 20 MG Protonix 20 MG 05/08/2021 12:00:00 AM EDT 1.0 {tablet} active Protonix 20 MG eCW1 ([facility]) pantoprazole 20 MG Delayed Release Oral Tablet [Proton ix] Protonix 20 MG Protonix 20 MG 05/08/2021 12:00:00 AM EDT 1.0 {tablet} active Protonix 20 MG eCW1 ([facility]) pantoprazole 20 MG Delayed Release Oral Tablet [Proton ix] Protonix 20 MG Protonix 20 MG 05/08/2021 12:00:00 AM EDT 1.0 {tablet} active Protonix 20 MG eCW1 ([facility]) pantoprazole 20 MG Delayed Release Oral Tablet [Proton ix] Protonix 20 MG Protonix 20 MG 05/08/2021 12:00:00 AM EDT 1.0 {tablet} active Protonix 20 MG eCW1 ([facility]) pantoprazole 20 MG Delayed Release Oral Tablet [Proton ix] Protonix 20 MG Protonix 20 MG 05/08/2021 12:00:00 AM EDT 1.0 {tablet} active Protonix 20 MG eCW1 ([facility]) pantoprazole 20 MG Delayed Release Oral Tablet [Proton ix] Protonix 20 MG Protonix 20 MG 05/08/2021 12:00:00 AM EDT 1.0 {tablet} active Protonix 20 MG eCW1 ([facility]) pantoprazole 20 MG Delayed Release Oral Tablet [Proton ix] Protonix 20 MG Protonix 20 MG 05/08/2021 12:00:00 AM EDT 1.0 {tablet} active Protonix 20 MG eCW1 ([facility]) pantoprazole 20 MG Delayed Release Oral Tablet [Proton ix] Protonix 20 MG Protonix 20 MG 05/08/2021 12:00:00 AM EDT 1.0 {tablet} active Protonix 20 MG eCW1 ([facility]) Belbuca 75 MCG Belbuca 75 MCG 09/01/2020 12:00:00 AM EDT active Belbuca 75 MCG eCW1 ([facility]) Belbuca 150 MCG Belbuca 150 MCG 09/01/2020 12:00:00 AM EDT active Belbuca 150 MCG eCW1 ([facility]) Belbuca 150 MCG Belbuca 150 MCG 09/01/2020 12:00:00 AM EDT active Belbuca 150 MCG eCW1 ([facility]) Belbuca 150 MCG Belbuca 150 MCG 09/01/2020 12:00:00 AM EDT suspended Belbuca 150 MCG eCW1 ([facility]) Belbuca 150 MCG Belbuca 150 MCG 09/01/2020 12:00:00 AM EDT suspended Belbuca 150 MCG eCW1 ([facility]) Belbuca 150 MCG Belbuca 150 MCG 09/01/2020 12:00:00 AM EDT suspended Belbuca 150 MCG eCW1 ([facility]) Belbuca 150 MCG Belbuca 150 MCG 09/01/2020 12:00:00 AM EDT suspended Belbuca 150 MCG eCW1 ([facility]) Belbuca 150 MCG Belbuca 150 MCG 09/01/2020 12:00:00 AM EDT suspended Belbuca 150 MCG eCW1 ([facility]) Belbuca 150 MCG Belbuca 150 MCG 09/01/2020 12:00:00 AM EDT suspended Belbuca 150 MCG eCW1 ([facility]) Belbuca 150 MCG Belbuca 150 MCG 09/01/2020 12:00:00 AM EDT active Belbuca 150 MCG eCW1 ([facility]) Belbuca 150 MCG Belbuca 150 MCG 09/01/2020 12:00:00 AM EDT suspended Belbuca 150 MCG eCW1 ([facility]) Belbuca 150 MCG Belbuca 150 MCG 09/01/2020 12:00:00 AM EDT suspended Belbuca 150 MCG eCW1 ([facility]) Belbuca 150 MCG Belbuca 150 MCG 09/01/2020 12:00:00 AM EDT active Belbuca 150 MCG eCW1 ([facility]) Belbuca 150 MCG Belbuca 150 MCG 09/01/2020 12:00:00 AM EDT suspended Belbuca 150 MCG eCW1 ([facility]) Belbuca 150 MCG Belbuca 150 MCG 09/01/2020 12:00:00 AM EDT suspended Belbuca 150 MCG eCW1 ([facility]) Belbuca 150 MCG Belbuca 150 MCG 09/01/2020 12:00:00 AM EDT active Belbuca 150 MCG eCW1 ([facility]) Belbuca 150 MCG Belbuca 150 MCG 09/01/2020 12:00:00 AM EDT suspended Belbuca 150 MCG eCW1 ([facility]) Belbuca 150 MCG Belbuca 150 MCG 09/01/2020 12:00:00 AM EDT suspended Belbuca 150 MCG eCW1 ([facility]) Belbuca 150 MCG Belbuca 150 MCG 09/01/2020 12:00:00 AM EDT suspended Belbuca 150 MCG eCW1 ([facility]) Belbuca 150 MCG Belbuca 150 MCG 09/01/2020 12:00:00 AM EDT suspended Belbuca 150 MCG eCW1 ([facility]) Belbuca 150 MCG Belbuca 150 MCG 09/01/2020 12:00:00 AM EDT suspended Belbuca 150 MCG eCW1 ([facility]) Belbuca 150 MCG Belbuca 150 MCG 09/01/2020 12:00:00 AM EDT suspended Belbuca 150 MCG eCW1 ([facility]) Belbuca 75 MCG Belbuca 75 MCG 09/01/2020 12:00:00 AM EDT active Belbuca 75 MCG eCW1 ([facility]) Belbuca 150 MCG Belbuca 150 MCG 09/01/2020 12:00:00 AM EDT suspended Belbuca 150 MCG eCW1 ([facility]) Belbuca 150 MCG Belbuca 150 MCG 09/01/2020 12:00:00 AM EDT suspended Belbuca 150 MCG eCW1 ([facility]) Insurance Providers Payer name Policy type / Coverage type Policy ID Covered republican ID Covered republican's relationship to perdomo Policy Perdomo Plan Information Medicare [place] Primary [id number] Self [id number] Medicaid [place] Medigap Part B [id number] Self [id number] Medicare [place] Medicare Primary [id number] Self Medicare [place] Medicare Primary [id number] Self [id number] [id number] Self Medicare [place] Medicare Primary [id number] Self [id number] Medicaid [place] Medigap Part B [id number] Self [id number] [place] Med[place] Part B [id number] Self [id number] MEDICARE [id number] SP [id number] MEDICARE [id number] Amelia [id number] 7C1 MEDICARE A [id number] Self [id number] MEDICARE [id number] SP [id number] MEDICARE [id number] SP [id number] Medicare P [id number] S [id number] 7[place]1 [place] 3 [id number] [place] 3 [id number] M zzMedicaid FFS O [id number] S [id number] Medicaid S [id number] S [id number] Medicaid S [id number] S [id number] MEDICAID [id number] Amelia [id number] MEDICAID M [id number] Self [id number] Medicare C [id number] SELF [id number] Medicaid [facility] S D [id number] SELF [id number] MEDICAID [id number] SP [id number] Medicaid S [id number] S [id number] [place] Part B [id number] Self [id number] Medicaid Medicaid [id number] Self [id number] zzMedicaid FFS O [id number] S [id number] MEDICARE [id number] SP [id number] A68 DME Jurisdiction A [facility] C [id number] SELF [id number] [place] [id number] SP [id number] SELF PAY ONLY [id number] SP [id number] MEDICARE [id number] SP [id number] 7C1 MEDICAID [id number] SP [id number] MEDICARE C [id number] S [id number] A68 MEDICAID M [id number] S [id number] Medicaid [facility] Part B [id number] Self [id number] Medicare [place] Medicare Primary [id number] Self [id number] Medicaid [facility] Part B [id number] Self [id number] Medicare [place] Medicare Primary [id number] Self [id number] MEDICAID PI PI MEDICARE PI PI Medicaid [facility] Part B [id number] Self [id number] Medicare [place] Medicare Primary [id number] Self [id number] [id number] Self Medicare [place] Medicare Primary [id number] Self MEDICAID [id number] SP [id number] MEDICARE C [id number] S [id number] 7C1 MEDICAID -O/P [id number] MEDICARE -O/P [id number] [id number] [facility] MEDICAID [id number] SP [id number] M SELF PAY 2 UNAVAILABLE 1 UNAVAILA BLE Problems, Conditions, and Diagnoses Code Display Name Description Problem Type Effective Dates Data Source(s) O99.845 Bariatric surgery status complicating th e puerperium Bariatric surgery status complicating the puerperium Problem 06/27/2021 12:00:00 AM ED T eCW1 ([facility]) O99.843 Bariatric surgery status complicating pr egnancy, third trimester Bariatric surgery status complicating , third trimester Problem 06/26/2021 12:00:00 AM EDT eCW1 ([facility]) K25.9 Gastric ulcer Gastric ulcer Problem 05/08/2021 12:00:00 AM EDT eCW1 ([facility]) O99.[id number] atus complicating , second trimester Problem 04/12/2021 12:00:00 AM EDT eCW1 ([facility]) O99.841 Bariatric surgery status complicating pr egnancy, first trimester Bariatric surgery status complicating , first trimester Problem 03/19/2021 12:00:00 AM EDT eCW1 ([facility]) Z34.80 care Supervision of other normal P malinda 02/15/2021 12:00:00 AM EDT eCW1 ([facility]) Surgeries/Procedures Procedure Description Date Indications Data Source(s) TDAP VACCINE 7/> YR IM 07/30/2021 12:00:00 AM EDT eCW1 ([facility]) Results ID Date Data Source [id number] 09/06/2021 09:10:00 AM EDT [facility] Name Value Range Interpretation Code Description Data Clara rce(s) Supporting Document(s) SARS-CoV-2 (COVID-19) RNA [Presence] in Respiratory specimen by MANOLO with probe detection Not Detected [facility] This lab was ordered by [facility] and reported by [facility] ID Date Data Source GROUP B STREP CULTURE 08/14/2021 12:00:00 AM EDT eCW1 ([facility]) Name Value Range Interpretation Code Description Data Clara rce(s) Supporting Document(s) GROUP B STREP CULTURE eCW1 ([facility]) ID Date Data Source [id number] 06/15/2021 12:00:00 AM EDT [facility] Name Value Range Interpretation Code Description Data Clara rce(s) Supporting Document(s) SARS-CoV2 Rapid Antigen Negative [facility] was reported by Leander Cooper. Procedure Social History Code Duration Value Status Description Data Source(s ) Smoking 08/30/2021 12:00:00 AM EDT Current Smoker completed Curre nt Smoker eCW1 ([facility]) Smoking 08/30/2021 12:00:00 AM EDT Current Smoker completed Curre nt Smoker eCW1 ([facility]) Smoking 08/28/2021 12:00:00 AM EDT Current Smoker completed Curre nt Smoker eCW1 ([facility]) Smoking 08/28/2021 12:00:00 AM EDT Current Smoker completed Curre nt Smoker eCW1 ([facility]) Smoking 08/18/2021 12:00:00 AM EDT Current Smoker completed Curre nt Smoker eCW1 ([facility]) Smoking 08/14/2021 12:00:00 AM EDT Current Smoker completed Curre nt Smoker eCW1 ([facility]) Smoking 08/13/2021 12:00:00 AM EDT Current Smoker completed Curre nt Smoker eCW1 ([facility]) Smoking 07/09/2021 12:00:00 AM EDT Current Smoker completed Curre nt Smoker eCW1 ([facility]) Smoking 06/26/2021 12:00:00 AM EDT Current Smoker completed Curre nt Smoker eCW1 ([facility]) Smoking 06/26/2021 12:00:00 AM EDT Current Smoker completed Curre nt Smoker eCW1 ([facility]) Smoking 06/26/2021 12:00:00 AM EDT Current Smoker completed Curre nt Smoker eCW1 ([facility]) Smoking 05/21/2021 12:00:00 AM EDT Current Smoker completed Curre nt Smoker eCW1 ([facility]) Smoking 04/23/2021 12:00:00 AM EDT Current Smoker completed Curre nt Smoker eCW1 ([facility]) Smoking 04/23/2021 12:00:00 AM EDT Current Smoker completed Curre nt Smoker eCW1 ([facility]) Smoking 04/23/2021 12:00:00 AM EDT Current Smoker completed Curre nt Smoker eCW1 ([facility]) Smoking 03/19/2021 12:00:00 AM EDT Current Smoker completed Curre nt Smoker eCW1 ([facility]) Smoking 03/19/2021 12:00:00 AM EDT Current Smoker completed Curre nt Smoker eCW1 ([facility]) Smoking 02/19/2021 12:00:00 AM EDT Current Smoker completed Curre nt Smoker eCW1 ([facility]) Smoking 10/12/2020 12:00:00 AM EST Current Smoker completed Curre nt Smoker eCW1 ([facility]) Smoking 10/12/2020 12:00:00 AM EST Current Smoker completed Curre nt Smoker eCW1 ([facility]) Smoking 10/12/2020 12:00:00 AM EST Current Smoker completed Curre nt Smoker eCW1 ([facility]) Smoking 10/12/2020 12:00:00 AM EST Current Smoker completed Curre nt Smoker eCW1 ([facility]) Smoking 10/12/2020 12:00:00 AM EST Current Smoker completed Curre nt Smoker eCW1 ([facility]) Vital Signs ID Date Data Source UNK Name Value Range Interpretation Code Description Data Source(s) Body weight 209.6 [lb_av] 209.6 [lb_av] eCW1 ([facility]) Body weight 95.07 kg 95.07 kg W1 ([facility]) Body height 67 [in_i] 67 [in_i] W1 ([facility]) Body mass index (BMI) [Ratio] 32.828 kg/m2 32.8 28 kg/m2 W1 ([facility]) Systolic blood pressure 110 mm[Hg] 110 mm[Hg] e CW1 ([facility]) Diastolic blood pressure 68 mm[Hg] 68 mm[Hg] eCW1 ([facility]) Body weight 206.8 [lb_av] 206.8 [lb_av] eCW1 ([facility]) Body weight 93.8 kg 93.8 kg [facility] ([facility]) Body height 67 [in_i] 67 [in_i] eCW1 ([facility]) Body mass index (BMI) [Ratio] 32.39 kg/m2 32.39 kg/m2 eCW1 ([facility]) Systolic blood pressure 112 mm[Hg] 112 mm[Hg] e CW1 ([facility]) Diastolic blood pressure 70 mm[Hg] 70 mm[Hg] eCW1 ([facility]) Body weight 205 [lb_av] 205 [lb_av] eCW1 ([facility]) Body weight 92.99 kg 92.99 kg eCW1 ([facility]) Body height 67 [in_i] 67 [in_i] eCW1 ([facility]) Body mass index (BMI) [Ratio] 32.108 kg/m2 32.1 08 kg/m2 eCW1 ([facility]) Systolic blood pressure 104 mm[Hg] 104 mm[Hg] e CW1 ([facility]) Diastolic blood pressure 70 mm[Hg] 70 mm[Hg] eCW1 ([facility]) Body weight 204.8 [lb_av] 204.8 [lb_av] eCW1 ([facility]) Body weight 92.9 kg 92.9 kg eCW1 ([facility]) Body height 67 [in_i] 67 [in_i] eCW1 ([facility]) Body mass index (BMI) [Ratio] 32.076 kg/m2 32.0 76 kg/m2 eCW1 ([facility]) Systolic blood pressure 118 mm[Hg] 118 mm[Hg] e CW1 ([facility]) Diastolic blood pressure 74 mm[Hg] 74 mm[Hg] eCW1 ([facility]) Body weight 199 [lb_av] 199 [lb_av] eCW1 ([facility]) Body weight 90.26 kg 90.26 kg eCW1 ([facility]) Body height 67 [in_i] 67 [in_i] eCW1 ([facility]) Body mass index (BMI) [Ratio] 31.168 kg/m2 31.1 68 kg/m2 eCW1 ([facility]) Systolic blood pressure 128 mm[Hg] 128 mm[Hg] e CW1 ([facility]) Diastolic blood pressure 84 mm[Hg] 84 mm[Hg] eCW1 ([facility]) Body weight 195.4 [lb_av] 195.4 [lb_av] eCW1 ([facility]) Body weight 88.63 kg 88.63 kg eCW1 ([facility]) Body height 67 [in_i] 67 [in_i] eCW1 ([facility]) Body mass index (BMI) [Ratio] 30.604 kg/m2 30.6 04 kg/m2 eCW1 ([facility]) Systolic blood pressure 110 mm[Hg] 110 mm[Hg] e CW1 ([facility]) Diastolic blood pressure 82 mm[Hg] 82 mm[Hg] eCW1 ([facility]) Body weight 190.4 [lb_av] 190.4 [lb_av] eCW1 ([facility]) Body mass index (BMI) [Ratio] 29.821 kg/m2 29.8 21 kg/m2 eCW1 ([facility]) Systolic blood pressure 108 mm[Hg] 108 mm[Hg] e CW1 ([facility]) Diastolic blood pressure 72 mm[Hg] 72 mm[Hg] eCW1 ([facility]) Body weight 86.36 kg 86.36 kg eCW1 ([facility]) Body height 67 [in_i] 67 [in_i] eCW1 ([facility]) Body weight 187 [lb_av] 187 [lb_av] eCW1 ([facility]) Body height 67 [in_i] 67 [in_i] eCW1 ([facility]) Body mass index (BMI) [Ratio] 29.288 kg/m2 29.2 88 kg/m2 eCW1 ([facility]) Systolic blood pressure 110 mm[Hg] 110 mm[Hg] e CW1 ([facility]) Diastolic blood pressure 74 mm[Hg] 74 mm[Hg] eCW1 ([facility]) Body weight 189.6 [lb_av] 189.6 [lb_av] eCW1 ([facility]) Body weight 86 kg 86 kg eCW1 ([facility]) Body height 67 [in_i] 67 [in_i] eCW1 ([facility]) Body mass index (BMI) [Ratio] 29.696 kg/m2 29.6 96 kg/m2 eCW1 ([facility]) Systolic blood pressure 110 mm[Hg] 110 mm[Hg] e CW1 ([facility]) Diastolic blood pressure 68 mm[Hg] 68 mm[Hg] eCW1 ([facility]) Body weight 212.4 [lb_av] 212.4 [lb_av] eCW1 ([facility]) Body height 67 [in_i] 67 [in_i] eCW1 ([facility]) Body mass index (BMI) [Ratio] 33.26 kg/m2 33.26 kg/m2 eCW1 ([facility]) Heart rate 84 /min 84 /min eCW1 ([facility]) Respiratory rate 18 /min 18 /min eCW1 ([facility]) Body temperature 97.0 [degF] 97.0 [degF] eCW1 ( [facility]) Systolic blood pressure 121 mm[Hg] 121 mm[Hg] e CW1 ([facility]) Diastolic blood pressure 73 mm[Hg] 73 mm[Hg] eCW1 ([facility]) Patient Treatment Plan of Care Planned Activity Planned Date Details Description Data Source (s) Glucose Monitor - 06/27/2021 12:00:00 AM EDT eCW1 ([facility]) Test Strips - 06/27/2021 12:00:00 AM EDT eCW1 ([facility]) Alcohol Wipes 70 % 06/27/2021 12:00:00 AM EDT eCW1 ([facility]) Lancets - 06/27/2021 12:00:00 AM EDT e CW1 ([facility]) Glucose Monitor - 06/27/2021 12:00:00 AM EDT eCW1 ([facility]) Test Strips - 06/27/2021 12:00:00 AM EDT eCW1 ([facility]) Alcohol Wipes 70 % 06/27/2021 12:00:00 AM EDT eCW1 ([facility]) Lancets - 06/27/2021 12:00:00 AM EDT e CW1 ([facility]) Glucose Monitor - 06/27/2021 12:00:00 AM EDT eCW1 ([facility]) Test Strips - 06/27/2021 12:00:00 AM EDT eCW1 ([facility]) Alcohol Wipes 70 % 06/27/2021 12:00:00 AM EDT eCW1 ([facility]) Lancets - 06/27/2021 12:00:00 AM EDT e CW1 ([facility]) Test Strips - 06/26/2021 12:00:00 AM EDT eCW1 ([facility]) Glucose Monitor - 06/26/2021 12:00:00 AM EDT eCW1 ([facility]) Alcohol Wipes 70 % 06/26/2021 12:00:00 AM EDT eCW1 ([facility]) Lancets - 06/26/2021 12:00:00 AM EDT e CW1 ([facility]) Test Strips - 06/26/2021 12:00:00 AM EDT eCW1 ([facility]) Glucose Monitor - 06/26/2021 12:00:00 AM EDT eCW1 ([facility]) Alcohol Wipes 70 % 06/26/2021 12:00:00 AM EDT eCW1 ([facility]) Lancets - 06/26/2021 12:00:00 AM EDT e CW1 ([facility]) Test Strips - 06/26/2021 12:00:00 AM EDT eCW1 ([facility]) Glucose Monitor - 06/26/2021 12:00:00 AM EDT eCW1 ([facility]) Alcohol Wipes 70 % 06/26/2021 12:00:00 AM EDT eCW1 ([facility]) Lancets - 06/26/2021 12:00:00 AM EDT e CW1 ([facility]) pantoprazole 20 MG Delayed Release Oral Tablet [Proton ix] 05/08/2021 12:00:00 AM EDT eCW1 ([facility]) pantoprazole 20 MG Delayed Release Oral Tablet [Proton ix] 05/08/2021 12:00:00 AM EDT eCW1 ([facility]) Belbuca 150 MCG 09/01/2020 12:00:00 AM EDT eCW1 ([facility]) Belbuca 150 MCG 09/01/2020 12:00:00 AM EDT eCW1 ([facility]) Belbuca 150 MCG 09/01/2020 12:00:00 AM EDT eCW1 ([facility]) Belbuca 150 MCG 09/01/2020 12:00:00 AM EDT eCW1 ([facility]) Belbuca 150 MCG 09/01/2020 12:00:00 AM EDT eCW1 ([facility]) Belbuca 75 MCG 09/01/2020 12:00:00 AM EDT eCW1 ([facility]) Belbuca 75 MCG 09/01/2020 12:00:00 AM EDT eCW1 ([facility])
--- OUTSIDE RECORDS SUMMARY | 2021-09-11 05:35 | CCD | Continuity of Care Document ---
Author Author [facility] Organization Unknown Address [address] [place] [address] Phone [phone] Care Team Providers Care Tube Mounter Name Role Phone Lucía Almeida MD [facility] [phone] Problems Description No Information Available Social History Type Date Description Comments Sex Unknown Allergies, Adverse Reactions, Alerts Description No Information Available Medications Description No Information Available Immunizations Description No Information Available Vital Signs Description No Information Available Results Description No Information Available Procedures Description No Information Available Medical Devices Description No Information Available Encounters Description No Information Available Assessments Description No Information Available Plan of Treatment No Information Available Functional Status Description No Information Available Mental Status Description No Information Available Referrals Description No Information Available
--- OUTSIDE RECORDS SUMMARY | 2021-09-11 05:35 | CCD ---
Author Author [facility] Organization [facility] Address Unknown Phone Unavailable Care Team Providers Care Cut Tobacco Bulker Name Role Phone Gita Clements Unavailable PROBLEMS Type Condition ICD9-CM Code [id number] Code Onset Dates Condition S tatus W/U Status Risk SNOMED Code Notes Problem Asthma, unspecified, unspecified status 493.90 Active confirmed 33058830 Problem Polycystic ovaries 256.4 Active confirmed 6 7882427 Problem Ureteral calculi 592.1 Active confirmed 310 30825 Problem Bariatric surgery status complicating , third trimester O99.843 Active confirmed Problem Nondependent tobacco use disorder 305.1 Active confirmed 387968431 Problem Bariatric surgery status complicating the puerperium O99.845 Active confirmed Problem Supervision of other normal Z34.80 Active 666819681 Problem Bariatric surgery status complicating , first trimester O99.841 Active confirmed Problem Bariatric surgery status complicating , second trimester O99.842 Active confirmed 830406063 Problem Gastric ulcer K25.9 Active confirmed 740570 006 ALLERGIES Allergen (clinical drug ingredient) Drug/Non Drug Allergy do cumented on EMR Reaction Allergy Type Onset Date Status Keflex Rash Drug Allergy Active sulfa Rash Non Drug Allergy Active cat itchy eyes,sneezing Non Drug Allergy Active codeine Codeine Sulfate([facility] Code:[address]-96) RASH Drug Al lergy Active Ibuprofen Ibuprofen Gastric ulcers Non Drug Allergy Acti ve ENCOUNTERS from 1989 to 2021-08-17 Encounter Location Date Provider Diagnosis [facility] [address] [facility] [phone] [place] [address] Aug, Gita Clements Bariatric surgery st atus complicating , third trimester O99.843 and 35 weeks gestation of Z3A.35 IMMUNIZATIONS Vaccine Route Administration Date Status TDAP [...] FOR REFERRAL No Information VITAL SIGNS Weight 205 lbs Aug, Weight-kg 92.99 kg Aug, Height 67 in Aug, BMI 32.108 kg/m2 Aug, Blood pressure systolic 104 mm Hg Aug, Blood pressure diastolic 70 [...] daily Acti ve PROCEDURES No Information RESULTS Component Value Reference Range GROUP B STREP CULTURE Reviewed date:08/17/2021 09:16:30 Interpretation: Performing Lab:[facility], [facility] [address] [address] , ,[place] [address] REASON FOR VISIT 2 wk pn MEDICAL (GENERAL) HISTORY Type Description [...] , third trimester (ICD-10 - O99.843) Aug, 35 weeks gestation of (ICD-10 - Z3A.35 ) PLAN OF TREATMENT Next Appt Details 1-2 weeks Reason: Provider Name:Gita Clements, 2021-08-10 8 02:40:00 PM, [address] [place] [address], [address] [place] [address], [place], [address], Provider Name:Alma López, 2021-09-04 0 3:20:00 PM, [address] [place] [address], [address] [place] [address], [place], [place], [address] [place] [address], Provider Name:Jaspreet Banda, 2021-09-24 01:15:00 PM, [address] [place] [address], [address] [place] [address], [place], [place], [address] [place] [address], Provider Name:Alma López, 2021-11-01 0 9:20:00 AM, [address] [place] [address], [address] [place] [address], [place], [address], Follow Up:1-2 weeksPrenatal Insurance Providers Payer Name Payer Address Payer Phone Insured Name Patient Relati onship to Insured Coverage Start Date Coverage End Date MEDICARE Part A and B [address] [facility] [id number] MARIA E FARMER MEDICAID [facility] [employer] [address] [facility] [id number] MARIA E FARMER
[2021-09-11] MEDS ORDERED: PANT20TA6 PO (06:03)
[2021-09-11] MEDS ORDERED: PRENTAB9 PO (06:03)
[2021-09-11] MEDS ORDERED: LR 1,000 ML IV ONE (06:05)
[2021-09-11] MEDS ORDERED: LR 1,000 ML IV SCH ×3 (06:05→09:20)
[2021-09-11] MEDS ORDERED: BICITRA 30ML SOLN UDC PO ONE (06:05)
[2021-09-11] MEDS ORDERED: HOME MED LIST COMPLETE! XX SCH (06:05)
[2021-09-11 06:42] LABS: HEMATOCRIT 40.2 % (36.0-47.0); HEMOGLOBIN 13.8 g/dl (12.0-15.5); MEAN CORPUSCULAR HEMOGLOBIN 32.8 pg (27.0-33.0); MEAN CORPUSCULAR HGB CONC 34.3 g/dl (32.0-36.5); MEAN CORPUSCULAR VOLUME 95.5 fl (80.0-96.0); PLATELET COUNT, AUTOMATED 266 10^3/uL (150-450); RED BLOOD COUNT 4.21 10^6/uL (4.00-5.40); WHITE BLOOD COUNT 13.1 10^3/uL (4.0-10.0)
[2021-09-11] MEDS ORDERED: MORPHINE PRES-FREE INJ 10 MG/10 ML VIAL (J2274) As Ordered ONE (06:53)
[2021-09-11] MEDS ORDERED: KETOROLAC 60MG 2ML VIAL As Ordered ONE (06:54)
[2021-09-11] MEDS ORDERED: ONDANSETRON 4MG/2ML VIAL As Ordered ONE (06:54)
[2021-09-11] MEDS ORDERED: OXYTOCIN INJ 10 UNITS/ML VIAL (J2590) As Ordered ONE (06:54)
[2021-09-11] MEDS ORDERED: dexameTHASONE 4 MG/ML 1ML VIAL (J1100 PER 1MG) As Ordered ONE (06:54)
[2021-09-11] MEDS ORDERED: OXYTOCIN 30 UNITS IN 0.9% NaCl 500ML IV BAG (J2590) As Ordered ONE ×2 (06:55→09:46)
[2021-09-11] MEDS ORDERED: CLINDAMYCIN 900 MG in IV 1 EA IV ONE (07:30)
[2021-09-11] MEDS ORDERED: ONDANSETRON 4MG/2ML VIAL IV PRN ×3 (07:47→09:20)
[2021-09-11] MEDS ORDERED: NALBUPHINE HCL 10 MG/ML AMP (J2300) IV PRN ×2 (07:47→09:20)
[2021-09-11] MEDS ORDERED: diphenhydrAMINE 50MG/ML VIAL (J1200) IV PRN (07:47)
[2021-09-11] MEDS ORDERED: NALOXONE INJ 0.4MG/1ML VIAL (J2310 PER 1MG) IV PRN ×2 (07:47)
[2021-09-11] MEDS ORDERED: METOCLOPRAMIDE INJ 10MG/2ML VIAL (J2765 PER 1) IV PRN (07:47)
[2021-09-11] MEDS ORDERED: OXYTOCIN DRIP 30 UNITS in IV 1 EA IV SCH (07:50)
[2021-09-11] MEDS ORDERED: PERCOCET 5MG/325MG TAB PO PRN (07:50)
[2021-09-11] MEDS ORDERED: RHOGAM 300 MCG (1500 IU) INJ (J2790) IM SCH (07:50)
[2021-09-11] MEDS ORDERED: MEASLES,MUMPS,RUBELLA VACCINE INJ (MMR-II) (90707) SC SCH (07:50)
[2021-09-11] MEDS ORDERED: MOM 30ML SUSPENSION UDC PO PRN (07:50)
[2021-09-11] MEDS ORDERED: SIMETHICONE 80MG CHEW TAB PO PRN (07:50)
--- NOTE | 2021-09-11 07:51 | ROOPDOC ---
[facility] Report Of Operation Report of Operation DATE OF PROCEDURE: 09/11/21 SURGEON: Alma López M.D. MOLD CLOSER: Jaspreet Banda M.D. ( essential for tissue retractions, exposure and delivery of ) PROCEDURE: Primary section PREOPERATIVE DIAGNOSIS: 1. Elective primary section POSTOPERATIVE DIAGNOSIS: 1. Elective primary section ANESTHESIA: Spinal ESTIMATED BLOOD LOSS: 600 mL URINE OUTPUT: 75 mL INTRAVENOUS FLUIDS: 1000 mL of lactated Ringer's solution PREOPERATIVE ANTIBIOTICS:. 900 mg of clindamycin and 400 mg of gentamicin OPERATIVE FINDINGS: Liveborn female infant, Apgars 9 and 9. Weight 30 to 40 g or 7 pounds 2 ounces SPECIMENS: None DESCRIPTION OF PROCEDURE: After informed consent was obtained and written consent was reviewed. The patient was brought to the operating room where spinal anesthesia was placed. She was then placed in the supine position with a left lateral tilt. Martines catheter was placed and to gravity. Patient was then prepped and draped in the normal sterile fashion. A timeout operating room was performed identifying the patient, procedure be performed as well as drug allergies. Anesthesia was tested and deemed to be adequate. Pfannenstiel skin incision was made and this was carried down to the underlying rectus fascia. The fascia was then scored and this incision was extended bilaterally. The fascia was then dissected off the underlying rectus muscle superiorly and inferiorly. The rectus muscles were then in the midline. The peritoneum is then entered. Vesicouterine peritoneum was then tented and excised and a bladder flap was created. Mobius retractor was then placed. Next, a curvilinear incision was then made in the lower uterine segment. Amniotomy was performed, productive, clear fluid. The head was brought to the level of the incision atraumatically a nd delivered along the shoulders and corpus. The cord was clamped x2. The infant was brought over to the warmer with a good cry. Placenta was drained and delivered grossly intact. The uterus was cleared of all clots and debris and the uterine incision was then closed using 0 Vicryl in a running locking fashion followed by a second layer of 0 Vicryl in a running nonlocking fashion for imbrication. The abdomen suctioned. Surgical sites reinspected and noted be hemostatic. The retractor was then removed. The anterior peritoneum was then reapproximated with 3-0 Vicryl. The rectus muscles were reapproximated 3-0 Vicryl. The fascia was then closed using 0 Vicryl in a running nonlocking fashion. The subcutaneous tissues was then irrigated and suctioned. Subcutaneous tissue was reapproximated using 3-0 Vicryl. Several subdermal stitch is placed using 3-0 Vicryl and the skin was closed with 4-0 Monocryl and subcuticular fashion. This incision was then cleaned and dried and was dressed. The patient was then taken to recovery in stable condition. All counts were correct. . My surgical pathologist Dr. Banda played in an essential role during the operation. He assisted with tissue identification retraction, delivery of the , as well as wound closure. ALMA LÓPEZ MD. Sep 11, 2021 07:51
[2021-09-11] MEDS ORDERED: ePHEDrine SULFATE 25 MG/5 ML(5MG/ML) SYRINGE As Ordered ONE (07:53)
[2021-09-11] MEDS ORDERED: PHENYLephrine 500MCG 5ML (100MCG/ML) SYRINGE As Ordered ONE (07:53)
[2021-09-11] MEDS ORDERED: GENTAMICIN 400 MG in D5W 100 ML IV ONE (08:00)
[2021-09-11] MEDS: DOCUSATE SODIUM 100MG CAPSULE PO SCH ×2 (09:00→21:15)
[2021-09-11] MEDS: PRENATAL VITAMINS CHEWABLE TABLET PO SCH (09:00)
[2021-09-11] MEDS ORDERED: fentaNYL 100 MCG/2 ML INJECTION (J3010) IV PRN (09:20)
[2021-09-11] MEDS ORDERED: oxyCODONE 5MG TAB PO PRN (09:20)
[2021-09-11] MEDS ORDERED: subutex PO (10:19)
[2021-09-11] MEDS: PERCOCET 5MG/325MG TAB PO PRN ×2 (10:45→16:52)
[2021-09-11] MEDS ORDERED: BUPRENORPHINE HCL 8MG SUBINGUAL TABLET SL SCH (12:00)
[2021-09-11] MEDS ORDERED: BUPR8SUB PO (12:27)
[2021-09-11] MEDS: PANTOPRAZOLE 20 MG TAB PO SCH (12:59)
[2021-09-11] MEDS: NICOTINE 21MG/24HR 1 EA TRANSDERMAL TD SCH (13:00)
[2021-09-11] MEDS: KETOROLAC 30 MG/ML 1ML VIAL IV SCH ×2 (13:50→19:41)
[2021-09-12] MEDS: KETOROLAC 30 MG/ML 1ML VIAL IV SCH ×4 (00:48→18:47)
[2021-09-12 02:00] VITALS: BP 112/64
[2021-09-12] MEDS: PERCOCET 5MG/325MG TAB PO PRN ×4 (02:21→21:23)
[2021-09-12 06:00] VITALS: BP 106/57
[2021-09-12 08:08] LABS: HEMATOCRIT 31.9 % (36.0-47.0); MEAN CORPUSCULAR HGB CONC 33.9 g/dl (32.0-36.5); MEAN CORPUSCULAR VOLUME 97.6 fl (80.0-96.0); PLATELET COUNT, AUTOMATED 186 10^3/uL (150-450); RED BLOOD COUNT 3.27 10^6/uL (4.00-5.40); WHITE BLOOD COUNT 11.2 10^3/uL (4.0-10.0)
[2021-09-12 08:18] LABS: HEMOGLOBIN 10.8 g/dl (12.0-15.5)
[2021-09-12] MEDS: PRENATAL VITAMINS CHEWABLE TABLET PO SCH (08:31)
[2021-09-12] MEDS: DOCUSATE SODIUM 100MG CAPSULE PO SCH ×2 (08:31→20:41)
[2021-09-12] MEDS: PANTOPRAZOLE 20 MG TAB PO SCH (08:31)
[2021-09-12] MEDS: NICOTINE 21MG/24HR 1 EA TRANSDERMAL TD SCH (08:32)
[2021-09-12 10:09] VITALS: BP 121/64
[2021-09-12 14:00] VITALS: BP 111/74
[2021-09-12 18:05] VITALS: BP 109/60
[2021-09-12 22:05] VITALS: BP 131/84
[2021-09-13] MEDS: KETOROLAC 30 MG/ML 1ML VIAL IV SCH ×3 (00:59→12:58)
[2021-09-13 02:10] VITALS: BP 142/89
[2021-09-13 06:42] VITALS: BP 109/63
[2021-09-13] MEDS: PERCOCET 5MG/325MG TAB PO PRN ×2 (06:55→12:57)
[2021-09-13] MEDS: DOCUSATE SODIUM 100MG CAPSULE PO SCH (08:48)
[2021-09-13] MEDS: PANTOPRAZOLE 20 MG TAB PO SCH (08:48)
[2021-09-13] MEDS: PRENATAL VITAMINS CHEWABLE TABLET PO SCH (08:48)
[2021-09-13] MEDS: NICOTINE 21MG/24HR 1 EA TRANSDERMAL TD SCH (08:49)
--- NOTE | 2021-09-13 10:01 | IPNPDOC ---
Progress Note Date of Service: Sep 13, 2021 Day#: 2 Progress Note SUBJECT: Doing well without complaints. Ambulating, voiding and pain is well-co ntrolled. Reports minimal lochia. OBJECTIVE: VITAL SIGNS: Within normal limits, afebrile. Alert and oriented times three. Abdomen: Fundus firm at U-2. Soft, NTTP. Incision: dressed Ext: neg calf tenderness. ASSESSMENT: /postoperative day #2 status post delivery. Recovering in stable condition. PLAN: 1. Continue routine /postoperative care 2. Discharge plans for tomorrow VS, I&O, 24H, Fishbone Vital Signs/I&O Vital Signs Date Time Temp Pulse Resp B/P (MAP) Pulse Ox O2 Delivery O2 Flow Rate FiO2 09/13/21 09:00 16 Room Air 09/13/21 06:42 98.1 65 109/63 (78) 97 Laboratory Data 24H LABS Laboratory Tests 2 09/12/21 11:30: Methicillin-Resist S.aureus DNA PCR NOT DETECTED EFRAIN DANGELO MD. Sep 13, 2021 10:01
[2021-09-13] MEDS ORDERED: PERCOCET PO (13:30)
--- NOTE | 2021-09-14 05:43 | DS.PDOC ---
Discharge Summary General Date of Admission Sep 11, 2021 at 05:31 Date of Discharge September 13, 2021 Attending Physician: EFRAIN DANGELO MD. Discharge Summary PROCEDURES PERFORMED DURING STAY: 1. Spinal anesthesia 2. section. ADMITTING DIAGNOSES: 1. Elective primary section. DISCHARGE DIAGNOSES: 1. Elective primary section. COMPLICATIONS/CHIEF COMPLAINT: Elective, Chronic Back Pain. HISTORY OF PRESENT ILLNESS: HISTORY OF PRESENT ILLNESS: Ms. Andrews presented for scheduled section. She underwent a uncomplicated primary section, productive of live born female infant a Apgars were 9 and 9 weight was 3040 g or 7 lbs. 2 oz. Estimated blood loss 600ml. Patient did well postoperatively by postoperative day #2 had met all discharge criteria is as discharged home in stable condition DISCHARGE MEDICATIONS: Please see below. ALLERGIES: Please see below. PHYSICAL EXAMINATION ON DISCHARGE: VITAL SIGNS: Please see below. GENERAL: No distress HEENT: WNL ABDOMINAL EXAMINATION: Fundus firm. Dressing intact EXTREMITIES: Equal strength and motion SKIN: Intact NEUROLOGICAL EXAMINATION: Grossly intact PSYCHIATRIC EXAMINATION: Appropriate LABORATORY DATA: Please see below. PROGNOSIS: Good ACTIVITY: As tolerated. Pelvic rest. DIET: As tolerated DISCHARGE PLAN: Discharge today. Remove dressing day 5 DISPOSITION: Home DISCHARGE INSTRUCTIONS: 1. Pelvic rest. Continue vitamins. Medications as ordered. Call with fever, nausea, vomiting, chills, foul lochia, wound exudate or evidence infection. RTO in 2 weeks for incision check. DISCHARGE CONDITION: Stable Vital Signs/I&Os Vital Signs Date Time Temp Pulse Resp B/P (MAP) Pulse Ox O2 Delivery O2 Flow Rate FiO2 09/13/21 14:01 16 Room Air 09/13/21 06:42 98.1 65 109/63 (78) 97 Discharge Medications Scheduled Acetaminophen (Tylenol 8 Hour) 650 Mg Tablet.er, 650 MG PO PRN, (Reported) Buprenorphine HCl (Buprenorphine HCl) 8 Mg Tab.subl, 8 MG PO BID, (Reported) Pantoprazole Sodium (Pantoprazole Sodium) 20 Mg Tablet.dr, 1 TAB PO DAILY, (Reported) No.137/Iron/Folic Acd ( Vitamin Tablet) 1 Each Tablet, 1 TAB PO DAILY, (Reported) Scheduled PRN Oxycodone/Acetaminophen (Oxycodone-Acetaminophen 5-325) 1 Each Tablet, 1 TAB PO Q4H PRN for MODERATE PAIN (PS 5-7) Allergies Coded Allergies: Sulfa (Sulfonamide Antibiotics) (Verified Allergy, Unknown, rash, 12/03/19) cephalexin (Verified Allergy, Unknown, 01/09/21) codeine (Verified Allergy, Unknown, rash, 12/03/19) ibuprofen (Verified Adverse Reaction, Unknown, gastric ulcers , 12/03/19) tramadol (Verified Adverse Reaction, Unknown, difficulty urinating , 12/03/19) EFRAIN DANGELO MD. Sep 14, 2021 05:43
== END 2021-09-13 15:25 | disposition home or self-care (01) | DRG 788 ==
LOC: EEVIPCON 09-11 05:31 → M LDI 09-11 05:31 → M OBS 09-11 10:20
PROVIDERS: ADMIT Obstetrics & Gynecology; ATTEND Obstetrics & Gynecology
PROC: 10D00Z1 Extraction of Products of Conception, Low, Open Approach (ICD-10-PCS; principal; 2021-09-11 07:30)
DX: O26.893 Other specified pregnancy related conditions, third trimester (principal); Z3A.39 39 weeks gestation of pregnancy; Z37.0 Single live birth; M54.9 Dorsalgia, unspecified

== ENCOUNTER 2021-11-20 09:37 | Emergency (ER) | payer MEDICARE, MEDICAID ==
[~2021-11-20] VITALS: Ht 61 cm; Wt 5.2 kg
[~2021-11-20 09:37] MED LIST changes: +BUPR8SUB PO; +PANT20TA6 PO; +PERCOCET PO; +PRENTAB9 PO; +subutex PO
== END 2021-11-20 12:14 | disposition left against medical advice (07) ==
LOC: EDBD 09:37 → M ED 09:37
DX: Z53.21 Procedure and treatment not carried out due to patient leaving prior to being seen by health care provider (principal)

== ENCOUNTER → 2021-12-05 | Outpatient (CLI) | payer MEDICARE, MEDICAID | LOC: M PAIN 13:00 | PROVIDERS: ATTEND Nurse Practitioner Family | DX: M54.17 Radiculopathy, lumbosacral region (principal); G89.29 Other chronic pain; F17.210 Nicotine dependence, cigarettes, uncomplicated; Z86.14 Personal history of Methicillin resistant Staphylococcus aureus infection; Z98.84 Bariatric surgery status; Z88.1 Allergy status to other antibiotic agents; Z88.2 Allergy status to sulfonamides; Z88.5 Allergy status to narcotic agent; Z88.6 Allergy status to analgesic agent; Z79.899 Other long term (current) drug therapy ==

== ENCOUNTER → 2022-03-05 | Outpatient (CLI) | payer MEDICARE, MEDICAID | LOC: M PLAIMG 13:28 | PROVIDERS: ATTEND Nurse Practitioner Family | DX: M51.16 Intervertebral disc disorders with radiculopathy, lumbar region (principal); M47.26 Other spondylosis with radiculopathy, lumbar region ==

== ENCOUNTER → 2022-04-15 | Outpatient (CLI) | payer MEDICARE, MEDICAID | LOC: M PAIN 14:30 | PROVIDERS: ATTEND Nurse Practitioner Family | DX: M79.10 Myalgia, unspecified site (principal); G89.29 Other chronic pain; F17.210 Nicotine dependence, cigarettes, uncomplicated; Z86.14 Personal history of Methicillin resistant Staphylococcus aureus infection; Z87.442 Personal history of urinary calculi; Z98.84 Bariatric surgery status; Z88.1 Allergy status to other antibiotic agents; Z88.2 Allergy status to sulfonamides; Z88.5 Allergy status to narcotic agent; Z88.6 Allergy status to analgesic agent; Z79.899 Other long term (current) drug therapy ==

== ENCOUNTER → 2022-05-30 | Outpatient (REF) | payer MEDICARE, MEDICAID | LOC: M SFHCWAGY 17:10 | PROVIDERS: ATTEND Nurse Practitioner Family | DX: Z12.4 Encounter for screening for malignant neoplasm of cervix (principal) | CPT/HCPCS: 87624; G0123 ==

== ENCOUNTER → 2022-07-27 | Outpatient (REF) | payer MEDICARE, MEDICAID ==
[2022-07-27 19:05] LABS: APPEARANCE, URINE MANUAL CLEAR (CLEAR); COLOR, URINE MANUAL LT YELLOW (YELLOW)
[2022-07-27 19:06] LABS: BILIRUBIN, URINE MANUAL NEGATIVE (NEGATIVE); BLOOD URINE MANUAL NEGATIVE (NEGATIVE); GLUCOSE, URINE (UA) MANUAL NEGATIVE (NEGATIVE); KETONE, URINE MANUAL NEGATIVE (NEGATIVE); LEUKOCYTE ESTERASE, URINE MAN TRACE (NEGATIVE); NITRITE, URINE MANUAL NEGATIVE (NEGATIVE); PROTEIN, URINE MANUAL NEGATIVE (NEGATIVE); UROBILINOGEN, URINE MANUAL NORMAL (NORMAL)
[2022-07-27 19:40] LABS: RBC, URINE 0-1 /hpf (0-3); SQUAMOUS EPITHELIAL CELL URINE SMALL AMOUNT /hpf (SMALL AMT)
[2022-07-27 19:41] LABS: BACTERIA, URINE NONE SEEN; HYALINE CAST, URINE NONE SEEN /lpf (0-1); TRANSITIONAL EPI CELLS, URINE SMALL AMOUNT /hpf
== END ==
LOC: M LAB REF 18:39
PROVIDERS: ATTEND Physician Assistant Medical
DX: N39.0 Urinary tract infection, site not specified (principal)

== ENCOUNTER → 2022-09-29 | Outpatient (REF) | payer MEDICARE, MEDICAID ==
[2022-09-30 12:57] LABS: GC DNA AMPLIFICATION NEGATIVE (NEGATIVE)
== END ==
LOC: M WUC 10:02
PROVIDERS: ATTEND Physician Assistant
DX: R30.0 Dysuria (principal)

== ENCOUNTER 2022-12-28 18:09 | Emergency (ER) | payer MEDICARE, MEDICAID ==
[~2022-12-28] VITALS: Ht 167.6 cm; Wt 70.4 kg
[2022-12-28 18:10] VITALS: BP 120/77
[2022-12-28] MEDS ORDERED: DOXY-443 PO (20:50)
[2022-12-28] MEDS ORDERED: DOXYCYCLINE HYCLATE 100MG TABLET PO ONE (20:55)
== END 2022-12-28 20:58 | disposition home or self-care (01) ==
LOC: M ED 18:09
DX: S01.80XA Unspecified open wound of other part of head, initial encounter (principal); M79.643 Pain in unspecified hand; M79.646 Pain in unspecified finger(s); W25.XXXA Contact with sharp glass, initial encounter; F17.200 Nicotine dependence, unspecified, uncomplicated; Z79.899 Other long term (current) drug therapy; Z88.2 Allergy status to sulfonamides; Z88.8 Allergy status to other drugs, medicaments and biological substances

== ENCOUNTER → 2023-07-03 | Outpatient (CLI) | payer MEDICARE, MEDICAID ==
[~2023-07-03] MED LIST changes: +DOXY-443 PO
[2023-07-03 19:10] LABS: HEMATOCRIT 38.6 % (36.0-47.0); HEMOGLOBIN 12.5 g/dl (12.0-15.5); MEAN CORPUSCULAR HEMOGLOBIN 27.7 pg (27.0-33.0); MEAN CORPUSCULAR HGB CONC 32.4 g/dl (32.0-36.5); MEAN CORPUSCULAR VOLUME 85.6 fl (80.0-96.0); PLATELET COUNT, AUTOMATED 317 10^3/uL (150-450); RED BLOOD COUNT 4.51 10^6/uL (4.00-5.40); WHITE BLOOD COUNT 7.6 10^3/uL (4.0-10.0)
[2023-07-03 19:22] LABS: HEMOGLOBIN A1c 5.3 % (4.0-6.0)
[2023-07-03 19:39] LABS: IRON (FE) 64 UG/DL (50-170)
[2023-07-03 19:41] LABS: TOTAL 25(OH) VITAMIN D 14.8 NG/ML (20.0-100.0)
[2023-07-03 19:42] LABS: FOLATE 21.78 NG/ML (>5.4); VITAMIN B12 LEVEL 235 PG/ML (211-911)
[2023-07-03 20:56] LABS: HEPATITIS C VIRUS ABY INDEX 0.11 INDEX (<0.8); HIV 1&2 SCREEN NEGATIVE (NEGATIVE)
[2023-07-03 21:15] LABS: GC DNA AMPLIFICATION NEGATIVE (NEGATIVE)
== END ==
LOC: M LAB 17:55
PROVIDERS: ATTEND Advanced Practice Midwife
DX: O99.611 Diseases of the digestive system complicating pregnancy, first trimester (principal); K90.9 Intestinal malabsorption, unspecified; Z3A.00 Weeks of gestation of pregnancy not specified

== ENCOUNTER → 2023-07-04 | Outpatient (REF) | payer MEDICARE, MEDICAID | LOC: M PLALAB 16:05 | PROVIDERS: ATTEND Obstetrics & Gynecology | DX: N76.1 Subacute and chronic vaginitis (principal) ==

== ENCOUNTER → 2023-10-31 | Outpatient (REF) | payer MEDICARE, MEDICAID ==
[~2023-10-31] MED LIST changes: -MISO200T56 PO; +MISO200T83 PO; -PREG50CA2; +PREG50CA3
[2023-10-31 19:37] LABS: CHLAMYDIA DNA AMPLIFICATION NEGATIVE (NEGATIVE); GC DNA AMPLIFICATION NEGATIVE (NEGATIVE)
== END ==
LOC: M PLALAB 15:52
PROVIDERS: ATTEND Obstetrics & Gynecology
DX: Z34.92 Encounter for supervision of normal pregnancy, unspecified, second trimester (principal); Z3A.32 32 weeks gestation of pregnancy; Z79.899 Other long term (current) drug therapy; Z11.3 Encounter for screening for infections with a predominantly sexual mode of transmission

== ENCOUNTER → 2023-11-28 | Outpatient (CLI) | payer MEDICARE, MEDICAID ==
[2023-11-28 18:17] LABS: HEMATOCRIT 35.6 % (36.0-47.0); HEMOGLOBIN 11.9 g/dl (12.0-15.5); MEAN CORPUSCULAR HEMOGLOBIN 31.4 pg (27.0-33.0); MEAN CORPUSCULAR HGB CONC 33.4 g/dl (32.0-36.5); MEAN CORPUSCULAR VOLUME 93.9 fl (80.0-96.0); PLATELET COUNT, AUTOMATED 243 10^3/uL (150-450); RED BLOOD COUNT 3.79 10^6/uL (4.00-5.40); WHITE BLOOD COUNT 9.1 10^3/uL (4.0-10.0)
== END ==
LOC: M LAB 17:03
PROVIDERS: ATTEND Obstetrics & Gynecology
DX: Z34.00 Encounter for supervision of normal first pregnancy, unspecified trimester (principal)

== ENCOUNTER → 2023-12-01 | Outpatient (REF) | payer MEDICARE, MEDICAID | LOC: M SFHCWAGY 09:38 | PROVIDERS: ATTEND Obstetrics & Gynecology | DX: Z36.85 Encounter for antenatal screening for Streptococcus B (principal); Z3A.36 36 weeks gestation of pregnancy ==

== ENCOUNTER → 2024-02-12 | Outpatient (REF) | payer MEDICARE, MEDICAID ==
[~2024-02-12] MED LIST changes: +MULT-90 PO
== END ==
LOC: M PLALAB 11:47
PROVIDERS: ATTEND Obstetrics & Gynecology
DX: N76.0 Acute vaginitis (principal)

== ENCOUNTER → 2024-11-01 | Outpatient (CLI) | payer MEDICARE, MEDICAID ==
[~2024-11-01] MED LIST changes: +DOXY-441 PO; -DOXY-443 PO; +FLUO-365 PO; -FLUO20CA22 PO
== END ==
LOC: M WHC 14:54
PROVIDERS: ATTEND Nurse Practitioner Family
DX: O09.522 Supervision of elderly multigravida, second trimester (principal); Z3A.27 27 weeks gestation of pregnancy

== ENCOUNTER → 2024-12-23 | Outpatient (CLI) | payer MEDICARE, MEDICAID ==
[2024-12-23 18:52] LABS: HEMATOCRIT 37.9 % (36.0-47.0); HEMOGLOBIN 12.5 g/dl (12.0-15.5); MEAN CORPUSCULAR HEMOGLOBIN 31.8 pg (27.0-33.0); MEAN CORPUSCULAR VOLUME 96.4 fl (80.0-96.0); PLATELET COUNT, AUTOMATED 314 10^3/uL (150-450); RED BLOOD COUNT 3.93 10^6/uL (4.00-5.40); WHITE BLOOD COUNT 9.5 10^3/uL (4.0-10.0)
[2024-12-23 19:51] LABS: HIV 1&2 SCREEN NEGATIVE (NEGATIVE)
[2024-12-23 19:59] LABS: HEPATITIS C VIRUS ABY INDEX 0.09 INDEX (<0.8)
[2024-12-23 20:21] LABS: Trichomonas vaginalis (AMP) NOT DETECTED (NEGATIVE)
[2024-12-23 20:44] LABS: GC DNA AMPLIFICATION NEGATIVE (NEGATIVE)
== END ==
LOC: M PLALAB 16:21
PROVIDERS: ATTEND Nurse Practitioner Family
DX: Z34.80 Encounter for supervision of other normal pregnancy, unspecified trimester (principal); Z11.3 Encounter for screening for infections with a predominantly sexual mode of transmission; Z11.59 Encounter for screening for other viral diseases

== ENCOUNTER → 2024-12-24 | Outpatient (CLI) | payer MEDICARE, MEDICAID | LOC: M RAD 13:48 | PROVIDERS: ATTEND Nurse Practitioner Family | DX: Z34.83 Encounter for supervision of other normal pregnancy, third trimester (principal); Z3A.35 35 weeks gestation of pregnancy ==

== ENCOUNTER → 2025-01-12 | Outpatient (CLI) | payer MEDICARE, MEDICAID ==
[~2025-01-12] MED LIST changes: +ACET-907 PO; +COLA100C5 PO; +IBUP1TAB7 PO
[2025-01-12 17:19] LABS: HEMATOCRIT 37.9 % (36.0-47.0); HEMOGLOBIN 12.8 g/dl (12.0-15.5); MEAN CORPUSCULAR HEMOGLOBIN 32.7 pg (27.0-33.0); MEAN CORPUSCULAR HGB CONC 33.8 g/dl (32.0-36.5); MEAN CORPUSCULAR VOLUME 96.7 fl (80.0-96.0); PLATELET COUNT, AUTOMATED 283 10^3/uL (150-450); RED BLOOD COUNT 3.92 10^6/uL (4.00-5.40)
[2025-01-12 17:45] LABS: URIC ACID 6.3 MG/DL (3.1-7.8)
[2025-01-12 17:47] LABS: LDH LACTATE DEHYDROGENASE 250 U/L (120-246)
[2025-01-12 17:48] LABS: ALT/SGPT 34 U/L (7.0-40); AST/SGOT 25 U/L (<34); BILIRUBIN,TOTAL 0.2 MG/DL (0.3-1.2); CREATININE FOR GFR 0.59 MG/DL (0.55-1.30); CREATININE,RANDOM URINE 193.9 MG/DL; GLOMERULAR FILTRATION RATE > 60.0 (>60)
== END ==
LOC: M PLALAB 16:23
PROVIDERS: ATTEND Nurse Practitioner Family
DX: R03.0 Elevated blood-pressure reading, without diagnosis of hypertension (principal)